=== PATIENT | female | born 1945 | race Caucasian/White ===

== ENCOUNTER → 2017-11-07 14:19 | Outpatient (CLI) | payer MEDICARE, SELFPAY ==
[2017-11-07 15:29] LABS: Absolute Lymphocyte Count 1.04 X10^3/ul (0.83-4.51); Absolute Neutrophil Count 5.1 X10^3/uL (2.0-7.7); Basophil# 0.02 X10^3/uL; Basophil% 0.3 % (0-1); Eosinophil# 0.05 X10^3/uL; Eosinophils% 0.7 % (0-5); Hematocrit 40.1 % (37-47); Hemoglobin 13.5 g/dl (12.0-15.0); Lymphocyte # 1.04 X10^3/ul (4.0); Lymphocyte % 15.2 % (19-41); Mean Corp Hgb Conc 33.7 g/gl (32-36); Mean Corpuscular Hgb 29.4 pg (27.0-32.0); Mean Corpuscular Volume 87.4 fL (81-99); Mean Platelet Vol. 9.7 fl (6.2-12.0); Monocyte# 0.58 X10^3/uL; Monocyte% 8.5 % (0-10); Neutrophil # 5.11 X10^3/uL (2.7-7.7); Platelet Count 270 K/mm3 (150-450); RBC Distribution Width CV 13.9 % (11.6-14.6); RBC Distribution Width SD 43.3 fl (35.1-43.9); Red Blood Count 4.59 M/mm3 (4.2-5.4); White Blood Count 6.8 K/mm3 (4.4-11.0)
[2017-11-07 15:33] LABS: POSITIVE COUNT NO; POSITIVE DIFFERENTIAL NO; POSITIVE MORPHOLOGY NO
[2017-11-07 16:07] LABS: ALB/GLOB Ratio 1.4 RATIO (0.9-2.4); AST(SGOT) 15 U/L (15-37); Alanine Aminotransfer ALT/SGPT 21 U/L (13-56); Albumin, Serum 4.2 g/dL (3.2-5.0); Alkaline Phosphatase 94 U/L (45-117); Anion Gap 12 (5-15); BUN 26 mg/dL (7-18); BUN/Creat Ratio 19.7 RATIO (10-20); Chloride 100 mmol/L (98-107); Creatinine, Serum 1.32 mg/dL (0.55-1.02); EST Glomerular Filtration Rate 42 mL/min (>60); Est Glom Filt Rate - Afr Amer 51 mL/min (>60); Glucose 92 mg/dL (74-106); Potassium 4.1 mmol/L (3.5-5.1); Prealbumin 32.1 mg/dL (20.0-40.0); Protein, Total 7.2 g/dL (6.4-8.2); Sodium Level 136 mmol/L (136-145); T4 Free Direct 1.67 ng/dL (0.76-1.46)
== END ==
PROVIDERS: Visit Provider Family Medicine
DX: D50.9 Iron deficiency anemia, unspecified (principal); R63.4 Abnormal weight loss; R63.0 Anorexia
CPT/HCPCS: 36415; 80053; 84134; 84439; 84443; 85025

== ENCOUNTER → 2017-11-14 10:06 | Outpatient (CLI) | payer MEDICARE, SELFPAY ==
--- NOTE | 2017-11-14 10:13 | RAD_ITS ---
STUDY: X-RAY - ABDOMEN/PELVIS REASON FOR EXAM: Female, 72 years old. Vomiting. TECHNIQUE: AP supine and upright views of the abdomen and pelvis. COMPARISON: None. FINDINGS: Normal visualized lung bases. There is an unremarkable bowel gas pattern. There is no demonstrated free abdominal air. The visualized liver, spleen and kidneys are grossly normal in size and morphology. Normal soft tissue structures. Normal visualized osseous structures. RAD/Abd Inc Decub and/or Erect IMPRESSION: No evidence of ileus or obstruction. Electronically Signed: Kendrick Jenkins MD at 16:48 EST , Service support ,
== END ==
PROVIDERS: Family Provider Family Medicine; PCP Family Medicine; Visit Provider Family Medicine
DX: R11.10 Vomiting, unspecified (principal)
CPT/HCPCS: 74019

== ENCOUNTER 2017-11-21 11:58 | Observation (INO) | payer MEDICARE, SELFPAY ==
[2017-11-21] VITALS (9 sets, daily range): BP systolic 102–188; BP diastolic 58–94; PULSE 64–92; RESP 14–21; TEMP 36.2–37.1; O2SAT 97–98; BMI 25.7; BMI 27.4
--- NOTE | 2017-11-21 12:00 | ED.RN ---
GAIT BELT TAKEN OFF PT AND GIVE TO FAMILY
--- NOTE | 2017-11-21 12:54 | RAD_ITS ---
STUDY: X-RAY CHEST REASON FOR EXAM: Female, 72 years old. Increased weakness. TECHNIQUE: Single AP portable view of the chest. COMPARISON: Comparison is made with prior study dated February 25, 2017. FINDINGS: EKG electrodes are seen. The lungs are clear and expanded. Calcified granuloma in the left lower lobe. There is no demonstrated pleural abnormality. There is borderline cardiomegaly. Normal mediastinum and hi. Normal visualized pulmonary arteries. There is atherosclerotic calcification of the aortic arch with tortuosity. There are degenerative changes of the visualized thoracic spine. Normal visualized ribs, clavicles, and shoulders. There is no demonstrated abnormality of the visualized soft tissue structures of the upper abdomen. RAD/Chest 1 View (Portable) IMPRESSION: No acute abnormality is seen. Electronically Signed: Mitchell Norton MD at 13:31 EST Tel [phone], Service support ,
--- NOTE | 2017-11-21 12:54 | EKG12_ITS ---
Test Reason : WEAKNESS Blood Pressure : / mmHG Vent. Rate : 064 BPM Atrial Rate : 394 BPM P-R Int : 000 ms QRS Dur : 100 ms QT Int : 366 ms P-R-T Axes : 000 024 118 degrees QTc Int : 377 ms Atrial fibrillation Inferior infarct , age undetermined Nonspecific ST abnormality Abnormal ECG Confirmed by LINDSAY GUADALUPE, EPI ([id number]), editorial director WANG AVELAR ([id number]) on 11/23/2017 1:34:03 PM Referred By: Shane Bangura Confirmed By:EPI MONTOYA MD
[2017-11-21] MEDS: 0.9% Normal Saline 1,000 ML 1000 ML IV (13:19)
[2017-11-21 13:28] LABS: Absolute Lymphocyte Count 1.04 X10^3/ul (0.83-4.51); Absolute Neutrophil Count 6.3 X10^3/uL (2.0-7.7); Basophil# 0.03 X10^3/uL; Basophil% 0.4 % (0-1); Eosinophil# 0.02 X10^3/uL; Eosinophils% 0.2 % (0-5); Hematocrit 40.2 % (37-47); Hemoglobin 13.7 g/dl (12.0-15.0); Lymphocyte # 1.04 X10^3/ul (4.0); Lymphocyte % 12.9 % (19-41); Mean Corp Hgb Conc 34.1 g/gl (32-36); Mean Corpuscular Hgb 29.9 pg (27.0-32.0); Mean Corpuscular Volume 87.8 fL (81-99); Mean Platelet Vol. 9.3 fl (6.2-12.0); Monocyte# 0.61 X10^3/uL; Monocyte% 7.6 % (0-10); Neutrophil # 6.32 X10^3/uL (2.7-7.7); Neutrophil % 78.4 % (47-70); Platelet Count 262 K/mm3 (150-450); RBC Distribution Width CV 13.6 % (11.6-14.6); RBC Distribution Width SD 42.5 fl (35.1-43.9); Red Blood Count 4.58 M/mm3 (4.2-5.4); White Blood Count 8.1 K/mm3 (4.4-11.0)
[2017-11-21 13:29] LABS: POSITIVE COUNT NO; POSITIVE DIFFERENTIAL NO; POSITIVE MORPHOLOGY NO
[2017-11-21 13:48] LABS: ALB/GLOB Ratio 1.3 RATIO (0.9-2.4); AST(SGOT) 24 U/L (15-37); Alanine Aminotransfer ALT/SGPT 20 U/L (13-56); Alkaline Phosphatase 99 U/L (45-117); Anion Gap 8 (5-15); BUN 27 mg/dL (7-18); BUN/Creat Ratio 20.5 RATIO (10-20); Calcium,Total 11.3 mg/dL (8.5-10.1); Chloride 101 mmol/L (98-107); Creatinine, Serum 1.32 mg/dL (0.55-1.02); EST Glomerular Filtration Rate 42 mL/min (>60); Est Glom Filt Rate - Afr Amer 51 mL/min (>60); Estimated Creatinine Clearance 30.02 ml/min; Globulin 3.1 g/dL (2.2-4.2); Glucose 100 mg/dL (74-106); Potassium 4.2 mmol/L (3.5-5.1); Protein, Total 7.1 g/dL (6.4-8.2); Sodium Level 135 mmol/L (136-145)
[2017-11-21 14:59] LABS: Mucous, Urine 0 SEEN /hpf (<or=2+); Red Blood Cells-Urine 0 SEEN /hpf (0-5); Squamous Epithelial Cells - UA 0 SEEN /hpf (5-10); White Blood Cells 0 SEEN /hpf (0-5)
[2017-11-21 15:01] LABS: Color, Urine Yellow (Yellow); Glucose, Dipstick Normal (Normal); Ketone-Dipstick 5 mg/dl (Negative); Leukocyte Esterase-Dipstick Negative /ul (Negative); Nitrite-Dipstick Negative (Negative); Occult Blood-Urine Negative /ul (Negative); Protein-Dipstick 30 mg/dl (Negative); Urine Bilirubin Dipstick Negative (Negative); Urine Clarity Clear (Clear); Urine Urobilinogen Normal (Normal)
[2017-11-21 15:09] LABS: Amorphous Sediment R; Bacteria RARE /hpf (None Seen)
--- NOTE | 2017-11-21 16:07 | ED.VISSUMM ---
- ER Visit Summary Date of Service: 11/21/17 Chief Complaint: Weakness History of Present Illness: The patient is a 72 F who presents with generalized weakness. She has a history of multiple strokes. She previously had a home health nurse physical therapy and occupational therapy. She states that she ran out of days to cover this. She currently has a home health aide 4 days a week. Caregivers note that she has been increasingly weak over the past 3-4 weeks and particularly in the past 2. She does report some intermittent nausea and vomiting every few days for the past 3-4 weeks but otherwise has no focal complaint. She denies any urinary symptoms shortness of breath cough diarrhea fever. Physical Examination: Afebrile vitals unremarkable Moist mucous membranes Heart irregular but normal rate Lungs are clear Abdomen soft Alert and oriented Patient has left upper and lower extremity weakness with effort against gravity but unable to lift more than slightly off the bed and this is at baseline Test Results: EKG shows rate controlled atrial fibrillation similar to prior. Laboratory studies notable for creatinine of 1.32 which appears to be baseline. Chest x-ray shows no acute process. Emergency Department Course and Treatment: Social work did evaluate the patient here. She will need precertification. Patient will be discussed with the hospitalist for observation. Treatment Plan: [] Disposition: Admit Impression: Generalized weakness History of stroke This note was generated with [employer] dictation software. It may contain incorrect words, spelling, and punctuation that were not noted in review of the chart prior to signing ED Disposition - Plan for ED Patient: Chief Complaint: Weakness Referrals: Shane Bangura MD [Primary Care Provider] -
--- NOTE | 2017-11-21 16:41 | CASEMGMT ---
Social Work: Referral for SNF placement. Patient presents to ED as weak and needing max assist for transfers. Patient lives with significant other who states that it is getting very difficult to care for patient in the home. Patient states that she has already spoken with Kelly at [facility] in [place] and per patient [facility] is holding a bed for patient. Spoke with Dr. Soares who states patient will be admitted for observation. Patient has [facility] and will need precert for SNF placement. Will give report to SW on unit once patient has been admitted. PLAN: Patient to be admitted for observation and precert will be started for SNF placement. FLORIN Olivera
--- NOTE | 2017-11-21 17:38 | PCM.HP.STD ---
Problem List (1) Debility Status: Acute (2) Recurrent falls Status: Chronic (3) Hypertension Status: Chronic Qualifiers: Hypertension type: essential hypertension (4) Diabetes type 2, controlled Status: Chronic Qualifiers: Diabetes mellitus complication status: without complication Diabetes mellitus correction insulin use: without correction use Qualified Code(s): E11.9 - Type 2 diabetes mellitus without complications (5) Afib Status: Chronic Qualifiers: Atrial fibrillation type: chronic Qualified Code(s): I48.2 - Chronic atrial fibrillation (6) CAD (coronary artery disease) Status: Chronic Qualifiers: Coronary Disease-Associated Artery/Lesion type: unspecified vessel or lesion type Associated angina: angina presence unspecified (7) CHF (congestive heart failure) Status: Chronic Qualifiers: Heart failure chronicity: chronic (8) Stroke (cerebrum) Status: Chronic Qualifiers: Laterality of affected vessel: left (9) Seizure Status: Chronic (10) Hyperlipidemia Status: Chronic Qualifiers: Hyperlipidemia type: unspecified Qualified Code(s): E78.5 - Hyperlipidemia, unspecified History of Present Illness Date of Admission: 11/21/17 Chief Complaint: Debility, recurrent falls The patient is a 72 year old F with past medical history of CVA with left hemiparesis, hypertension, chronic atrial fibrillation, on Eliquis, type II DM, hyperlipidemia, 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 History was taken from the patient and her daughters who were in the room. Patient is requesting for SNF placement as she is weak and needing max assist for transfers. She states she is getting too difficult to be cared for at home. She had already spoken with [facility]ry in [place] and they are holding onto a bed for her. Patient denied any headaches or dizziness or shortness of breath or chest pain or palpitations. She has nausea and vomited this morning, she says this is no new, she has been seeing her primary care doctor for some time with it and no new diagnosis has been given for now. Vitals in the ED was stable with temperature of 90 8.2F, heart rate of 81, blood pressure 141/92 respiratory rate was 14 SPO2 is 97% on room air. Blood work was essentially unremarkable for CBC, BMP showed sodium of 135, potassium 4.2 chloride 101, bicarb 26 BUN 27 creatinine 1.32, with a baseline apparently around 1.2. 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) Hyperlipidemia (Chronic) CVA (cerebral vascular accident) (Chronic) Allergies Sulfa (Sulfonamide Antibiotics) Adverse Reaction (Verified 02/25/17 08:14) Other thimerosal Adverse Reaction (Verified 02/25/17 08:14) Other Home Medications: Ambulatory Orders Medication Instructions Recorded Amlodipine [Norvasc] 5 mg PO BID 11/12/16 Apixaban [Eliquis] 5 mg PO BID 11/23/16 Clonidine HCl [Catapres] 0.1 mg PO DAILY 11/23/16 Ondansetron [Zofran Odt] 4 mg PO Q6H PRN PRN #0 tablet 11/23/16 Omeprazole [Prilosec] 20 mg PO BID 02/18/17 Atorvastatin Calcium [Lipitor] 80 mg PO QHS 02/25/17 Acetaminophen [Tylenol Tablet] 650 mg PO Q6H PRN PRN tablet 03/01/17 Levetiracetam [Keppra] 1,000 mg PO BID 11/21/17 Lisinopril [Zestril] 10 mg PO DAILY 11/21/17 Magnesium Oxide [Mag-Ox 400] 400 mg PO BIDCM 11/21/17 Metformin HCl [Glucophage] 500 mg PO BID 11/21/17 Metoprolol Tartrate [Lopressor 25 mg PO BID 11/21/17 (beta gutierrez)] Sertraline HCl [Zoloft] 50 mg PO DAILY 11/21/17 Surgical History: appendectomy, coronary bypass surgery - X 5., hysterectomy, - - ORIF right wrist fracture, ankle surgery Psychiatric History: No pertinent psych hx 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 Denies: Anorexia, Chills, Fever, Malaise, Weight Change Eyes: Denies: Blurred vision, Cataracts, Conjunctivae Inflammation, Double vision, Pain HEENT: Denies: Difficulty Hearing, Difficulty Swallowing, Head Aches, Hearing Changes, Sinus Congestion, Sinus Drainage, Sore Throat Cardiovascular: Denies: Chest Pain, Claudication, Chest Pressure, Edema, Orthopnea, Palpitations, Paroxysmal Noc. Dyspnea Respiratory: Denies: Cough, Shortness of breath at rest, Shortness of breath upon exertion, Sputum production Gastrointestinal: Denies: Abdominal Pain, Constipation, Nausea, Vomiting Genitourinary: Denies: Dysuria, Frequency, Incontinence Musculoskeletal: Denies: Joint Pain, Joint stiffness, Joint Tenderness Skin: Denies: Pruritis, Rash, Wounds Neurological: Reports: Focal weakness - left sided, not new. Denies: Difficulty swallowing, Numbness, Tingling Psychiatric: Denies: Anxiety, Depression, Homicidal Ideations, Suicidal Ideations Endocrine: Denies: Change in Body Habitus, Heat/ Cold Intolerance Hematologic/ Lymphatic: Denies: Easy Bruising, Easy Bleeding VTE Information - Inpt Only VTE Present on Admission: No VTE Pharm Prophylaxis ordered?: Yes Patient Problems: Active and Suspected Problems Debility (Acute) - Physical Exam Vital Signs Temp Pulse Resp BP Pulse Ox 97.1 F L 92 21 H 188/92 H 97 11/21/17 17:13 11/21/17 17:13 11/21/17 17:13 11/21/17 17:13 11/21/17 17:13 Assessment/Plan Active and Suspected Problems Debility (Acute) 72 year old F with past medical history of CVA with left hemiparesis, hypertension, chronic atrial fibrillation, on Eliquis, type II DM, hyperlipidemia, 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 1. Debility/recurrent falls in a patient with prior history of CVA, requesting for SNF placement Plan: Admit patient, placed on observation status, monitor on telemetry, and OT to evaluate and treat, care management to assist with placement 2. Hypertension, uncontrolled, likely secondary to missed medications, is on amlodipine, clonidine, will lisinopril, metoprolol, will continue the same will continue on home medication with hydralazine as needed and monitor on telemetry 3. History of CVA, with left-sided residual hemiparesis, on Eliquis, statin, will continue same 4. Type II DM, on metformin, would add Accu-Cheks and low dose insulin sliding scale 5. CAD status post CABG and stents, EKG shows no acute ST-T changes, patient is on statins beta gutierrez LAURIE inhibitor, will continue the same, no acute symptoms 6. Chronic Atrial fibrillation, rate controlled, metoprolol and Eliquis, will continue the same 7. Depression, on Zoloft 8. DVT Prophylaxis - patient on Eliquis Code Visit OBSV E&M: 01329 Initial observation care L3
--- NOTE | 2017-11-21 17:48 | HP.PCM_ITS ---
Problem List (1) Debility Status: Acute (2) Recurrent falls Status: Chronic (3) Hypertension Status: Chronic Qualifiers: Hypertension type: essential hypertension (4) Diabetes type 2, controlled Status: Chronic Qualifiers: Diabetes mellitus complication status: without complication Diabetes mellitus halfway insulin use: without halfway use Qualified Code(s): E11.9 - Type 2 diabetes mellitus without complications (5) Afib Status: Chronic Qualifiers: Atrial fibrillation type: chronic Qualified Code(s): I48.2 - Chronic atrial fibrillation (6) CAD (coronary artery disease) Status: Chronic Qualifiers: Coronary Disease-Associated Artery/Lesion type: unspecified vessel or lesion type Associated angina: angina presence unspecified (7) CHF (congestive heart failure) Status: Chronic Qualifiers: Heart failure chronicity: chronic (8) Stroke (cerebrum) Status: Chronic Qualifiers: Laterality of affected vessel: left (9) Seizure Status: Chronic (10) Hyperlipidemia Status: Chronic Qualifiers: Hyperlipidemia type: unspecified Qualified Code(s): E78.5 - Hyperlipidemia , unspecified History of Present Illness Date of Admission: 11/21/17 Chief Complaint: Debility, recurrent falls The patient is a 72 year old F with past medical history of CVA with left hemiparesis, hypertension, chronic atrial fibrillation, on Eliquis, type II DM, hyperlipidemia, 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 History was taken from the patient and her daughters who were in the room. Patient is requesting for SNF placement as she is weak and needing max assist for transfers. She states she is getting too difficult to be cared for at home. She had already spoken with [facility]ry in [place] and they are holding onto a bed for her. Patient denied any headaches or dizziness or shortness of breath or chest pain or palpitations. She has nausea and vomited this morning, she says this is no new, she has been seeing her primary care doctor for some time with it and no new diagnosis has been given for now. Vitals in the ED was stable with temperature of 90 8.2F, heart rate of 81, blood pressure 141/92 respiratory rate was 14 SPO2 is 97% on room air. Blood work was essentially unremarkable for CBC, BMP showed sodium of 135, potassium 4.2 chloride 101, bicarb 26 BUN 27 creatinine 1.32, with a baseline apparently around 1.2. 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) Hyperlipidemia (Chronic) CVA (cerebral vascular accident) (Chronic) Allergies Sulfa (Sulfonamide Antibiotics) Adverse Reaction (Verified 02/25/17 08:14) Other thimerosal Adverse Reaction (Verified 02/25/17 08:14) Other Home Medications: Ambulatory Orders Medication Instructions Recorded Amlodipine [Norvasc] 5 mg PO BID 11/12/16 Apixaban [Eliquis] 5 mg PO BID 11/23/16 Clonidine HCl [Catapres] 0.1 mg PO DAILY 11/23/16 Ondansetron [Zofran Odt] 4 mg PO Q6H PRN PRN #0 tablet 11/23/16 Omeprazole [Prilosec] 20 mg PO BID 02/18/17 Atorvastatin Calcium [Lipitor] 80 mg PO QHS 02/25/17 Acetaminophen [Tylenol Tablet] 650 mg PO Q6H PRN PRN tablet 03/01/17 Levetiracetam [Keppra] 1,000 mg PO BID 11/21/17 Lisinopril [Zestril] 10 mg PO DAILY 11/21/17 Magnesium Oxide [Mag-Ox 400] 400 mg PO BIDCM 11/21/17 Metformin HCl [Glucophage] 500 mg PO BID 11/21/17 Metoprolol Tartrate [Lopressor 25 mg PO BID 11/21/17 (beta gutierrez)] Sertraline HCl [Zoloft] 50 mg PO DAILY 11/21/17 Surgical History: appendectomy, coronary bypass surgery - X 5., hysterectomy, - - ORIF right wrist fracture, ankle surgery Psychiatric History: No pertinent psych hx 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 Denies: Anorexia, Chills, Fever, Malaise, Weight Change Eyes: Denies: Blurred vision, Cataracts, Conjunctivae Inflammation, Double vision, Pain HEENT: Denies: Difficulty Hearing, Difficulty Swallowing, Head Aches, Hearing Changes, Sinus Congestion, Sinus Drainage, Sore Throat Cardiovascular: Denies: Chest Pain, Claudication, Chest Pressure, Edema, Orthopnea, Palpitations, Paroxysmal Noc. Dyspnea Respiratory: Denies: Cough, Shortness of breath at rest, Shortness of breath upon exertion, Sputum production Gastrointestinal: Denies: Abdominal Pain, Constipation, Nausea, Vomiting Genitourinary: Denies: Dysuria, Frequency, Incontinence Musculoskeletal: Denies: Joint Pain, Joint stiffness, Joint Tenderness Skin: Denies: Pruritis, Rash, Wounds Neurological: Reports: Focal weakness - left sided, not new. Denies: Difficulty swallowing, Numbness, Tingling Psychiatric: Denies: Anxiety, Depression, Homicidal Ideations, Suicidal Ideations Endocrine: Denies: Change in Body Habitus, Heat/ Cold Intolerance Hematologic/ Lymphatic: Denies: Easy Bruising, Easy Bleeding VTE Information - Inpt Only VTE Present on Admission: No VTE Pharm Prophylaxis ordered?: Yes Patient Problems: Active and Suspected Problems Debility (Acute) - Physical Exam Vital Signs Temp Pulse Resp BP Pulse Ox 97.1 F L 92 21 H 188/92 H 97 11/21/17 17:13 11/21/17 17:13 11/21/17 17:13 11/21/17 17:13 11/21/17 17:13 Assessment/Plan Active and Suspected Problems Debility (Acute) 72 year old F with past medical history of CVA with left hemiparesis, hypertension, chronic atrial fibrillation, on Eliquis, type II DM, hyperlipidemia, 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 1. Debility/recurrent falls in a patient with prior history of CVA, requesting for SNF placement Plan: Admit patient, placed on observation status, monitor on telemetry, and OT to evaluate and treat, care management to assist with placement 2. Hypertension, uncontrolled, likely secondary to missed medications, is on amlodipine, clonidine, will lisinopril, metoprolol, will continue the same will continue on home medication with hydralazine as needed and monitor on telemetry 3. History of CVA, with left-sided residual hemiparesis, on Eliquis, statin, will continue same 4. Type II DM, on metformin, would add Accu-Cheks and low dose insulin sliding scale 5. CAD status post CABG and stents, EKG shows no acute ST-T changes, patient is on statins beta gutierrez LAURIE inhibitor, will continue the same, no acute symptoms 6. Chronic Atrial fibrillation, rate controlled, metoprolol and Eliquis, will continue the same 7. Depression, on Zoloft 8. DVT Prophylaxis - patient on Eliquis Code Visit OBSV E&M: 29037 Initial observation care L3
[2017-11-21] MEDS: Magnesium Oxide 400 MG Tablet PO (19:34)
[2017-11-21] MEDS: APIXABAN 5 MG TABLET PO (20:42)
[2017-11-21] MEDS: cloNIDine HCl 0.1 MG Tablet PO (20:42)
[2017-11-21] MEDS: Atorvastatin Calcium 80 MG Tablet PO (20:43)
[2017-11-21] MEDS: levETIRAcetam 1,000 MG Tablet 1000 MG PO (20:43)
[2017-11-21] MEDS: Metoprolol Tartrate 25 MG Tablet PO (20:44)
[2017-11-21] MEDS: Pantoprazole Sodium 20 MG Tablet PO (20:44)
[2017-11-21] MEDS: amLODIPine 5 MG Tablet PO (20:44)
[2017-11-21 22:01] LABS: Bedside Glucose 98 mg/dL (70-110)
[2017-11-22] VITALS (9 sets, daily range): BP systolic 116–154; BP diastolic 64–95; PULSE 52–75; RESP 16–18; TEMP 36.5–37; O2SAT 98–100
[2017-11-22 06:37] LABS: Absolute Lymphocyte Count 1.15 X10^3/ul (0.83-4.51); Absolute Neutrophil Count 4.1 X10^3/uL (2.0-7.7); Basophil# 0.02 X10^3/uL; Basophil% 0.3 % (0-1); Eosinophil# 0.05 X10^3/uL; Eosinophils% 0.9 % (0-5); Hematocrit 36.2 % (37-47); Lymphocyte # 1.15 X10^3/ul (4.0); Lymphocyte % 19.7 % (19-41); Mean Corp Hgb Conc 33.1 g/gl (32-36); Mean Corpuscular Hgb 29.1 pg (27.0-32.0); Mean Corpuscular Volume 87.9 fL (81-99); Mean Platelet Vol. 9.2 fl (6.2-12.0); Monocyte# 0.52 X10^3/uL; Monocyte% 8.9 % (0-10); Neutrophil # 4.07 X10^3/uL (2.7-7.7); Neutrophil % 69.9 % (47-70); Platelet Count 229 K/mm3 (150-450); RBC Distribution Width CV 13.7 % (11.6-14.6); RBC Distribution Width SD 43.5 fl (35.1-43.9); Red Blood Count 4.12 M/mm3 (4.2-5.4); White Blood Count 5.8 K/mm3 (4.4-11.0)
[2017-11-22 06:46] LABS: POSITIVE COUNT NO; POSITIVE DIFFERENTIAL NO; POSITIVE MORPHOLOGY NO
[2017-11-22 06:53] LABS: Anion Gap 10 (5-15); BUN 24 mg/dL (7-18); Calcium,Total 10.6 mg/dL (8.5-10.1); Chloride 102 mmol/L (98-107); Creatinine, Serum 1.09 mg/dL (0.55-1.02); EST Glomerular Filtration Rate 52 mL/min (>60); Est Glom Filt Rate - Afr Amer 63 mL/min (>60); Estimated Creatinine Clearance 36.36 ml/min; Glucose 98 mg/dL (74-106); Potassium 3.8 mmol/L (3.5-5.1); Sodium Level 135 mmol/L (136-145)
[2017-11-22] MEDS: cloNIDine HCl 0.1 MG Tablet PO ×2 (08:28→21:44)
[2017-11-22] MEDS: APIXABAN 5 MG TABLET PO ×2 (08:28→21:43)
[2017-11-22] MEDS: Sertraline 50 MG Tablet PO (08:29)
[2017-11-22] MEDS: Magnesium Oxide 400 MG Tablet PO ×2 (08:29→17:58)
[2017-11-22] MEDS: Metoprolol Tartrate 25 MG Tablet PO ×2 (08:29→21:44)
[2017-11-22] MEDS: levETIRAcetam 1,000 MG Tablet 1000 MG PO ×2 (08:29→21:44)
[2017-11-22] MEDS: Pantoprazole Sodium 20 MG Tablet PO ×2 (08:30→21:45)
[2017-11-22] MEDS: amLODIPine 5 MG Tablet PO ×2 (08:30→21:45)
[2017-11-22] MEDS: Lisinopril 10 MG Tablet PO (08:30)
--- NOTE | 2017-11-22 09:51 | CASEMGMT ---
Social Work Received referral from NA Posadas. Phone call placed to Kelly at [facility] and they do have beds available. Referral information faxed for review. Met with pt in room and discussed d/c plan. Pt confirms that she would like to go to [facility] upon d/c. SW explained initial referral has been made and SW will notify pt when [facility] makes decision if they can accept and that insurance precert will need to be obtained. SW will continue to follow for SNF placement. ELA Beltrán
--- NOTE | 2017-11-22 11:47 | CASEMGMT ---
Addendum entered by Telma Morse 11/22/17 15:07: Therapy notes faxed with request to start insurance precert. SW informed pt that [facility] can accept and will await insurance authorization. ELA Beltrán Original Note: Social Work [facility]. SW to fax therapy notes when completed and then precert will be started. SW will continue to follow for SNF placement. Plan: [facility] [place], pending insurance preauth ELA Beltrán
--- NOTE | 2017-11-22 13:22 | PCM.PN.HOSP ---
Patient Problems: Active and Suspected Problems Debility (Acute) Subjective: Still weak overall. Still with chronic left hemiparesis. Vitals/I&O's: Vital Signs Temp Pulse Resp BP Pulse Ox 36.8 C 63 18 154/95 H 98 11/22/17 07:36 11/22/17 08:29 11/22/17 07:36 11/22/17 07:36 11/22/17 07:36 Oxygen Delivery Method Room Air Weight: 68.084 kg Body Mass Index (BMI) 27.4 Intake and Output for Last 24 Hours 11/20/17 11/21/17 11/22/17 23:59 23:59 23:59 Intake Total 540 / 540 Balance 540 / 540 General: Alert, Cooperative, No apparent distress HEENT: Atraumatic, Normocephalic Lungs: Clear to auscultation, Normal air movement, No rhonchi, No wheeze Cardiovascular: Regular rate, Regular Rhythm, Normal S1, Normal S2, No murmurs Abdomen: Bowel Sounds Present, Soft, Non Tender, Non-Distended, No Hepato-splenomegaly Extremities: No edema, No Calf Tenderness Skin: No rashes, No breakdown Psych/Mental Status: Normal Affect, Appropriate Laboratory Results 11/21/17 20:41: POC Glucose 98 11/22/17 05:50: WBC 5.8, RBC 4.12 L, Hgb 12.0, Hct 36.2 L, MCV 87.9, MCH 29.1, MCHC 33.1, RDW 13.7, RDW Differential 43.5, Plt Count 229, MPV 9.2, Immature Gran % (Auto) 0.300, Neut % (Auto) 69.9, Lymph % (Auto) 19.7, [place] % (Auto) 8.9, Eos % (Auto) 0.9, Baso % (Auto) 0.3, Absolute Neuts (auto) 4.1, Absolute Lymphs (auto) 1.15, Total Counted Not Reportable 11/22/17 05:50: Sodium 135 L, Potassium 3.8, Chloride 102, Carbon Dioxide 23.0, Anion Gap 10, BUN 24 H, Creatinine 1.09 H, Estim Creat Clear Calc 36.36, Est GFR (MDRD) Af Amer 63, Est GFR (MDRD) Non-Af 52 L, BUN/Creatinine Ratio 22.0 H, Glucose 98, Calcium 10.6 H Current Medications Acetaminophen (Tylenol) 650 mg PO Q6H PRN PRN PRN Reason: Mild Pain (scale 0-3)/T>100.7 Amlodipine Besylate (Norvasc) 5 mg PO BID [facility] Last Admin: 11/22/17 08:30 Dose: 5 mg Apixaban (Eliquis) 5 mg PO BID [facility] Last Admin: 11/22/17 08:28 Dose: 5 mg Atorvastatin Calcium (Lipitor) 80 mg PO QHS [facility] Last Admin: 11/21/17 20:43 Dose: 80 mg Bisacodyl (Dulcolax) 5 mg PO DAILY PRN PRN Reason: Constipation Clonidine (Catapres) 0.1 mg PO BID [facility] Last Admin: 11/22/17 08:28 Dose: 0.1 mg Hydralazine HCl (Apresoline) 5 mg IV Q6H PRN PRN PRN Reason: BLOOD PRESSURE Levetiracetam (Keppra) 1,000 mg PO BID [facility] Last Admin: 11/22/17 08:29 Dose: 1,000 mg Lisinopril (Zestril) 10 mg PO DAILY [facility] Last Admin: 11/22/17 08:30 Dose: 10 mg Magnesium Hydroxide (Milk Of Magnesia) 30 ml PO DAILY PRN PRN Reason: Constipation Magnesium Hydroxide (Milk Of Magnesia) 30 ml PO DAILY PRN PRN PRN Reason: Constipation [facility] 400[facility] Admin: 11/22/17 08:29 Dose: 400 mg [facility] ([facility]) [facility] Last Admin: 11/22/17 08:28 Dose: 500 mg Metoprolol Tartrate (Lopressor (Beta Elias)) 25 mg PO BID [facility] Last Admin: 11/22/17 08:29 Dose: 25 mg Ondansetron HCl (Zofran Odt) 4 mg PO Q6H PRN PRN PRN Reason: NAUSEA Ondansetron HCl (Zofran) 4 mg IV Q6H PRN PRN PRN Reason: NAUSEA/VOMITING Pantoprazole Sodium (Protonix) 20 mg PO BID [facility] Last Admin: 11/22/17 08:30 Dose: 20 mg Sertraline HCl (Zoloft) 50 mg PO DAILY [facility] Last Admin: 11/22/17 08:29 Dose: 50 mg Sodium Chloride () 5 - 30 ml IV UD PRN PRN Reason: SALINE FLUSH Assessment/Plan Active and Suspected Problems Debility (Acute) 1. Debility This is been a progressive process for the patient. No acute etiology has been identified. Plan is for physical therapy to evaluate and then to proceed with precertification to try get patient into a intermediate facility. Discussed with the patient and her daughter at bedside that we will have to wait probably another day or 2 before he can get the formal okay for precertification and then patient can be discharged thereafter. 2. DVT prophylaxis: Patient is currently anticoagulated on Eliquis. Discussed with case management. Code Visit Inpatient E&M: 88690 Subs Hosp L2
--- NOTE | 2017-11-22 13:25 | PN_ITS ---
Patient Problems: Active and Suspected Problems Debility (Acute) Subjective: Still weak overall. Still with chronic left hemiparesis. Vitals/I&O's: Vital Signs Temp Pulse Resp BP Pulse Ox 36.8 C 63 18 154/95 H 98 11/22/17 07:36 11/22/17 08:29 11/22/17 07:36 11/22/17 07:36 11/22/17 07:36 Oxygen Delivery Method Room Air Weight: 68.084 kg Body Mass Index (BMI) 27.4 Intake and Output for Last 24 Hours 11/20/17 11/21/17 11/22/17 23:59 23:59 23:59 Intake Total 540 / 540 Balance 540 / 540 General: Alert, Cooperative, No apparent distress HEENT: Atraumatic, Normocephalic Lungs: Clear to auscultation, Normal air movement, No rhonchi, No wheeze Cardiovascular: Regular rate, Regular Rhythm, Normal S1, Normal S2, No murmurs Abdomen: Bowel Sounds Present, Soft, Non Tender, Non-Distended, No Hepato- splenomegaly Extremities: No edema, No Calf Tenderness Skin: No rashes, No breakdown Psych/Mental Status: Normal Affect, Appropriate Laboratory Results 11/21/17 20:41: POC Glucose 98 11/22/17 05:50: WBC 5.8, RBC 4.12 L, Hgb 12.0, Hct 36.2 L, MCV 87.9, MCH 29.1, MCHC 33.1, RDW 13.7, RDW Differential 43.5, Plt Count 229, MPV 9.2, Immature Gran % (Auto) 0.300, Neut % (Auto) 69.9, Lymph % (Auto) 19.7, [place] % (Auto) 8.9 , Eos % (Auto) 0.9, Baso % (Auto) 0.3, Absolute Neuts (auto) 4.1, Absolute Lymphs (auto) 1.15, Total Counted Not Reportable 11/22/17 05:50: Sodium 135 L, Potassium 3.8, Chloride 102, Carbon Dioxide 23.0, Anion Gap 10, BUN 24 H, Creatinine 1.09 H, Estim Creat Clear Calc 36.36, Est GFR (MDRD) Af Amer 63, Est GFR (MDRD) Non-Af 52 L, BUN/Creatinine Ratio 22.0 H, Glucose 98, Calcium 10.6 H Current Medications Acetaminophen (Tylenol) 650 mg PO Q6H PRN PRN PRN Reason: Mild Pain (scale 0-3)/T>100.7 Amlodipine Besylate (Norvasc) 5 mg PO BID [facility] Last Admin: 11/22/17 08:30 Dose: 5 mg Apixaban (Eliquis) 5 mg PO BID [facility] Last Admin: 11/22/17 08:28 Dose: 5 mg Atorvastatin Calcium (Lipitor) 80 mg PO QHS [facility] Last Admin: 11/21/17 20:43 Dose: 80 mg Bisacodyl (Dulcolax) 5 mg PO DAILY PRN PRN Reason: Constipation Clonidine (Catapres) 0.1 mg PO BID [facility] Last Admin: 11/22/17 08:28 Dose: 0.1 mg Hydralazine HCl (Apresoline) 5 mg IV Q6H PRN PRN PRN Reason: BLOOD PRESSURE Levetiracetam (Keppra) 1,000 mg PO BID [facility] Last Admin: 11/22/17 08:29 Dose: 1,000 mg Lisinopril (Zestril) 10 mg PO DAILY [facility] Last Admin: 11/22/17 08:30 Dose: 10 mg Magnesium Hydroxide (Milk Of Magnesia) 30 ml PO DAILY PRN PRN Reason: Constipation Magnesium Hydroxide (Milk Of Magnesia) 30 ml PO DAILY PRN PRN PRN Reason: Constipation [facility] Admin: 11/22/17 08:29 Dose: 400 mg [facility] ([facility] Last Admin: 11/22/17 08:28 Dose: 500 mg Metoprolol Tartrate (Lopressor (Beta Elias)) 25 mg PO BID [facility] Last Admin: 11/22/17 08:29 Dose: 25 mg Ondansetron HCl (Zofran Odt) 4 mg PO Q6H PRN PRN PRN Reason: NAUSEA Ondansetron HCl (Zofran) 4 mg IV Q6H PRN PRN PRN Reason: NAUSEA/VOMITING Pantoprazole Sodium (Protonix) 20 mg PO BID [facility] Last Admin: 11/22/17 08:30 Dose: 20 mg Sertraline HCl (Zoloft) 50 mg PO DAILY [facility] Last Admin: 11/22/17 08:29 Dose: 50 mg Sodium Chloride () 5 - 30 ml IV UD PRN PRN Reason: SALINE FLUSH Assessment/Plan Active and Suspected Problems Debility (Acute) 1. Debility * This is been a progressive process for the patient. No acute etiology has been identified. * Plan is for physical therapy to evaluate and then to proceed with precertification to try get patient into a retirement facility. * Discussed with the patient and her daughter at bedside that we will have to wait probably another day or 2 before he can get the formal okay for precertification and then patient can be discharged thereafter. 2. DVT prophylaxis: Patient is currently anticoagulated on Eliquis. Discussed with case management. Code Visit Inpatient E&M: 62156 Subs Hosp L2
--- NOTE | 2017-11-22 13:39 | CHAPLAIN ---
Type of Pastoral Visit _x__ Initial Visit ___ Follow-up Visit ___ On-call Visit ___ General Patient Visit ___ Spiritual Assessment ___ Family Conference ___ Bereavement ___ Rapid Response ___ Code Blue ___ Other (describe below) Pastoral Care Referral From _x__ Patient ___ Family ___ Nurse ___ Physician ___ Griddle Attendant ___ Education Administrative Assistant ___ Other (describe below) Sacrament/Intervention _x__ Active listening ___ Anointing ___ Mandaen ___ Bereavement ___ Communion _x__ Brigid exploration ___ _x__ Life review _x__ Prayer ___ Reconciliation ___ Sacrament of Sick _x__ Supportive presence ___ Wedding ___ Other (describe below) Pastoral Comments patient had requested visit due to past admissions and past visits together; pt gives updates and is very talkative; pt expresses thankfulness in the midst of difficult life circumstances and gives praise to God; pt has concerns for the younger generation and says she wants to pass on her brigid to others; pt has had some good family relations in recent months and is happy about that; 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
[2017-11-22] MEDS: Atorvastatin Calcium 80 MG Tablet PO (21:45)
[2017-11-23 01:34] VITALS: BP 127/72; PULSE 64; RESP 18; TEMP 36.1; O2SAT 100
[2017-11-23 07:40] VITALS: BP 136/87; PULSE 87; RESP 18; TEMP 36.7; O2SAT 100
[2017-11-23 07:47] VITALS: PULSE 87
[2017-11-23] MEDS: Pantoprazole Sodium 20 MG Tablet PO ×2 (07:47→20:14)
[2017-11-23] MEDS: Metoprolol Tartrate 25 MG Tablet PO ×2 (07:47→20:14)
[2017-11-23] MEDS: amLODIPine 5 MG Tablet PO ×2 (07:47→20:14)
[2017-11-23] MEDS: Lisinopril 10 MG Tablet PO (07:47)
[2017-11-23] MEDS: Sertraline 50 MG Tablet PO (07:47)
[2017-11-23] MEDS: cloNIDine HCl 0.1 MG Tablet PO ×2 (07:47→20:15)
[2017-11-23] MEDS: Magnesium Oxide 400 MG Tablet PO ×2 (07:47→16:44)
[2017-11-23] MEDS: levETIRAcetam 1,000 MG Tablet 1000 MG PO ×2 (07:47→20:15)
[2017-11-23] MEDS: APIXABAN 5 MG TABLET PO ×2 (07:48→20:15)
--- NOTE | 2017-11-23 10:30 | CASEMGMT ---
Addendum entered by Elyssa Torres 11/23/17 12:28: PAS/RR completed in the [employer] system, results attained. Elyssa CATHERINE, GROUP THERAPY COUNSELOR Original Note: WIL called Kelly at [facility] at 10am to check on precert, message left. Kelly returned call, she states she did not receive PT/OT(they were faxed yesterday). WIL refaxed PT/OT, she will start precert. WIL will continue to follow. FLORIN Gan, GROUP THERAPY COUNSELOR
--- NOTE | 2017-11-23 12:17 | PN_ITS ---
Patient Problems: Active and Suspected Problems Debility (Acute) Subjective: No new complaints at this time. Vitals/I&O's: Vital Signs Temp Pulse Resp BP Pulse Ox 36.7 C 87 18 136/87 H 100 11/23/17 07:40 11/23/17 07:47 11/23/17 07:40 11/23/17 07:40 11/23/17 07:40 Oxygen Delivery Method Room Air Weight: 68.084 kg Body Mass Index (BMI) 27.4 Intake and Output for Last 24 Hours 11/21/17 11/22/17 11/23/17 23:59 23:59 23:59 Intake Total 1100 / 1100 120 / 120 Balance 1100 / 1100 120 / 120 General: Alert, Cooperative, No apparent distress HEENT: Atraumatic, Normocephalic Extremities: No edema Skin: No rashes, No breakdown Current Medications Acetaminophen (Tylenol) 650 mg PO Q6H PRN PRN PRN Reason: Mild Pain (scale 0-3)/T>100.7 Amlodipine Besylate (Norvasc) 5 mg PO BID [facility] Last Admin: 11/23/17 07:47 Dose: 5 mg Apixaban (Eliquis) 5 mg PO BID [facility] Last Admin: 11/23/17 07:48 Dose: 5 mg Atorvastatin Calcium (Lipitor) 80 mg PO QHS [facility] Last Admin: 11/22/17 21:45 Dose: 80 mg Bisacodyl (Dulcolax) 5 mg PO DAILY PRN PRN Reason: Constipation Clonidine (Catapres) 0.1 mg PO BID [facility] Last Admin: 11/23/17 07:47 Dose: 0.1 mg Hydralazine HCl (Apresoline) 5 mg IV Q6H PRN PRN PRN Reason: BLOOD PRESSURE Levetiracetam (Keppra) 1,000 mg PO BID [facility] Last Admin: 11/23/17 07:47 Dose: 1,000 mg Lisinopril (Zestril) 10 mg PO DAILY [facility] Last Admin: 11/23/17 07:47 Dose: 10 mg Magnesium Hydroxide (Milk Of Magnesia) 30 ml PO DAILY PRN PRN Reason: Constipation Magnesium Hydroxide (Milk Of Magnesia) 30 ml PO DAILY PRN PRN PRN Reason: Constipation [facility] (Mag-Ox 400) [facility] Last Admin: 11/23/17 07:47 Dose: 400 mg Metformin HCl (Glucophage) [facility] Last Admin: 11/23/17 07:47 Dose: 500 mg Metoprolol Tartrate (Lopressor (Beta Elias)) 25 mg PO BID [facility] Last Admin: 11/23/17 07:47 Dose: 25 mg Ondansetron HCl (Zofran Odt) 4 mg PO Q6H PRN PRN PRN Reason: NAUSEA Ondansetron HCl (Zofran) 4 mg IV Q6H PRN PRN PRN Reason: NAUSEA/VOMITING Pantoprazole Sodium (Protonix) 20 mg PO BID [facility] Last Admin: 11/23/17 07:47 Dose: 20 mg Sertraline HCl (Zoloft) 50 mg PO DAILY [facility] Last Admin: 11/23/17 07:47 Dose: 50 mg Sodium Chloride () 5 - 30 ml IV UD PRN PRN Reason: SALINE FLUSH Assessment/Plan Active and Suspected Problems Debility (Acute) 1. Debility * This is been a progressive process for the patient. No acute etiology has been identified. * Plan is for physical therapy to evaluate and then to proceed with precertification to try get patient into a group home facility. * Discussed with the patient and her daughter at bedside that we will have to wait probably another day or 2 before he can get the formal okay for precertification and then patient can be discharged thereafter. 2. DVT prophylaxis: Patient is currently anticoagulated on Eliquis. Discussed with patient's partner bedside. Greater than 25 minutes of which greater than 50% of the time was counseling the patient and her partner about the precertification process and the time involved. And additionally discussing goals of group home facility in regards to strengthening and eventually to get the patient to point where she can be strong enough to be safe at home. Code Visit Inpatient E&M: 52090 Subs Hosp L2
[2017-11-23 13:40] VITALS: BP 116/71; PULSE 69; RESP 18; TEMP 36.5; O2SAT 99
[2017-11-23] MEDS: 0.9% NaCl Peripheral Flush Adult/Peds IV (14:41)
[2017-11-23 20:14] VITALS: BP 139/89; PULSE 68
[2017-11-23] MEDS: Atorvastatin Calcium 80 MG Tablet PO (20:14)
[2017-11-23 20:15] VITALS: BP 139/89; PULSE 68; RESP 16; TEMP 37; O2SAT 99
--- NOTE | 2017-11-23 20:15 | NURSING ---
pt very upset about the nursing staff not giving her medication at 1999. explain to pt we usually give between 2100 and 2200 but i will give it to her early at her request. pt said she has been working with a md to get her meds right and we are messing it.
[2017-11-23 20:26] LABS: Bedside Glucose 100 mg/dL (70-110)
[2017-11-24 03:16] VITALS: PULSE 50; RESP 18; O2SAT 95
[2017-11-24 03:18] VITALS: BP 141/67; PULSE 50; RESP 18; TEMP 36.6; O2SAT 95
[2017-11-24] MEDS: Magnesium Oxide 400 MG Tablet PO (08:16)
[2017-11-24 09:24] VITALS: BP 155/77; PULSE 74; RESP 16; TEMP 36.6; O2SAT 100
--- NOTE | 2017-11-24 09:26 | PN_ITS ---
Patient Problems: Active and Suspected Problems Debility (Acute) Subjective: No new events. Still waiting on insurance precertification. Vitals/I&O's: Vital Signs Temp Pulse Resp BP Pulse Ox 36.6 C 50 L 18 141/67 H 95 11/24/17 03:18 11/24/17 03:18 11/24/17 03:18 11/24/17 03:18 11/24/17 03:18 Oxygen Delivery Method Room Air Weight: 68.084 kg Body Mass Index (BMI) 27.4 Intake and Output for Last 24 Hours 11/22/17 11/23/17 11/24/17 23:59 23:59 23:59 Intake Total 1100 / 1100 1060 / 1060 120 / 120 Output Total 200 / 200 Balance 1100 / 1100 1060 / 1060 -80 / -80 General: Alert, Cooperative, No apparent distress HEENT: Atraumatic, Normocephalic Psych/Mental Status: Normal Affect, Appropriate Laboratory Results 11/23/17 20:22: POC Glucose 100 Current Medications Acetaminophen (Tylenol) 650 mg PO Q6H PRN PRN PRN Reason: Mild Pain (scale 0-3)/T>100.7 Amlodipine Besylate (Norvasc) 5 mg PO BID [facility] Last Admin: 11/23/17 20:14 Dose: 5 mg Apixaban (Eliquis) 5 mg PO BID [facility] Last Admin: 11/23/17 20:15 Dose: 5 mg Atorvastatin Calcium (Lipitor) 80 mg PO QHS [facility] Last Admin: 11/23/17 20:14 Dose: 80 mg Bisacodyl (Dulcolax) 5 mg PO DAILY PRN PRN Reason: Constipation Clonidine (Catapres) 0.1 mg PO BID [facility] Last Admin: 11/23/17 20:15 Dose: 0.1 mg Hydralazine HCl (Apresoline) 5 mg IV Q6H PRN PRN PRN Reason: BLOOD PRESSURE Levetiracetam (Keppra) 1,000 mg PO BID [facility] Last Admin: 11/23/17 20:15 Dose: 1,000 mg Lisinopril (Zestril) 10 mg PO DAILY [facility] Last Admin: 11/23/17 07:47 Dose: 10 mg Magnesium Hydroxide (Milk Of Magnesia) 30 ml PO DAILY PRN PRN Reason: Constipation Magnesium Hydroxide (Milk Of Magnesia) 30 ml PO DAILY PRN PRN PRN Reason: Constipation [facility] Admin: 11/24/17 08:16 Dose: 400 mg Metformin [facility] ([facility]uc[facility]) [facility] Last Admin: 11/24/17 08:16 Dose: 500 mg Metoprolol Tartrate (Lopressor (Beta Elias)) 25 mg PO BID [facility] Last Admin: 11/23/17 20:14 Dose: 25 mg Ondansetron HCl (Zofran Odt) 4 mg PO Q6H PRN PRN PRN Reason: NAUSEA Ondansetron HCl (Zofran) 4 mg IV Q6H PRN PRN PRN Reason: NAUSEA/VOMITING Pantoprazole Sodium (Protonix) 20 mg PO BID [facility] Last Admin: 11/23/17 20:14 Dose: 20 mg Sertraline HCl (Zoloft) 50 mg PO DAILY [facility] Last Admin: 11/23/17 07:47 Dose: 50 mg Sodium Chloride () 5 - 30 ml IV UD PRN PRN Reason: SALINE FLUSH Last Admin: 11/23/17 14:41 Dose: 10 ml Assessment/Plan Active and Suspected Problems Debility (Acute) 1. Debility * This is been a progressive process for the patient. No acute etiology has been identified. * Plan is for physical therapy to evaluate and then to proceed with precertification to try get patient into a jail facility. * Discussed with the patient and her daughter at bedside that we will have to wait probably another day or 2 before he can get the formal okay for precertification and then patient can be discharged thereafter. 2. DVT prophylaxis: Patient is currently anticoagulated on Eliquis. Code Visit Inpatient E&M: 95907 [facility] Hosp L1
[2017-11-24] MEDS: cloNIDine HCl 0.1 MG Tablet PO (09:27)
[2017-11-24] MEDS: APIXABAN 5 MG TABLET PO (09:27)
[2017-11-24 09:28] VITALS: PULSE 70
[2017-11-24] MEDS: levETIRAcetam 1,000 MG Tablet 1000 MG PO (09:28)
[2017-11-24] MEDS: Lisinopril 10 MG Tablet PO (09:28)
[2017-11-24] MEDS: Pantoprazole Sodium 20 MG Tablet PO (09:28)
[2017-11-24] MEDS: amLODIPine 5 MG Tablet PO (09:28)
[2017-11-24] MEDS: Sertraline 50 MG Tablet PO (09:28)
[2017-11-24] MEDS: Metoprolol Tartrate 25 MG Tablet PO (09:28)
--- NOTE | 2017-11-24 10:15 | CASEMGMT ---
Addendum entered by Elyssa Torres 11/24/17 10:20: Pt's significant other, Lanny, is here. SW spoke w/her, she states she called Kelly also at [facility] and Kelly said they are waiting for [employer]. Lanny states that she spoke w/Kelly and they will help pt change to [facility] from [employer] once she is there. SW let pt and Lanny know as soon as this SW hears back that pt is authorized, SW will let them know. FLORIN Gan, HOUSE DETECTIVE Original Note: Pt's daughter is here, asked to speak w/SW. SW went to pt's room, daughter has left. SW explained to pt that we are still waiting for precert to get her to [facility]. SW explained if her daughter returns SW can speak w/her, to let the RN know. SW then did call [facility] of [place], message left for Kelly in admissions. SW will continue to follow. FLORIN Gan, HOUSE DETECTIVE
--- NOTE | 2017-11-24 13:13 | NURSING ---
Nurse offers milk of magnesia; pt. refuses.
--- NOTE | 2017-11-24 13:30 | PCM.TXEXTCAR ---
- Diet 11/21/17 17:48 Diet: Cardiac/Low Cholesterol Type of Dietary Supplement:: Glucerna [place] Is pt able to select menu?: Yes - Routine Orders/Code Status Routine Lab Work: CBC Code Status: Full Code - Therapies Weight Bearing: Full weight bearing Physical Therapy: Eval and Treat Occupational Therapy: Eval and Treat - Allergies/Procedures Done in Hospital Allergies/Adverse Reactions: Allergies Sulfa (Sulfonamide Antibiotics) Adverse Reaction (Verified 02/25/17 08:14) Other thimerosal Adverse Reaction (Verified 02/25/17 08:14) Other - Type of Care/Length of Stay Estimated LOS: Convalescent Care Less Than 30 days Type of Care Needed: Skilled Rehab Potential: Fair Prognosis: Fair - Additional Orders/Day of Discharge Day of Discharge: 11/24/17 - Follow Up Care Primary Care Physician: Shane Bangura MD [Primary Care Provider] - Within 2 Weeks
[2017-11-24 13:31] VITALS: BP 125/72; PULSE 60; RESP 16; TEMP 36.8; O2SAT 99
--- NOTE | 2017-11-24 13:34 | DS.PCM_ITS ---
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 Electronically Signed: Mitchell Norton MD at 13:31 EST Tel [phone], Service support , Operations: None Summary of Care Provided: The patient is a 72 year old F has had a progressive decline. Patient just unable to be adequately cared for at home and requiring 2 people assist. Patient was brought into the hospital and evaluated by therapy. Therapy recommended half-way facility. Certification for half-way facility was obtained today. Patient will be discharged in stable condition. [ ] Discharge Diet: Low fat/ Low Cholesterol Discharge Activity: Return to Normal Activity Weight Bearing Status: Weight bearing as tolerated Home Medications: Medications to take at Discharge Amlodipine [Norvasc] 5 mg PO BID 11/12/16 Apixaban [Eliquis] 5 mg PO BID 11/23/16 Clonidine HCl [Catapres] 0.1 mg PO BID 11/23/16 Ondansetron [Zofran Odt] 4 mg PO Q6H PRN PRN #0 tablet 11/23/16 Omeprazole [Prilosec] 20 mg PO BID 02/18/17 Atorvastatin Calcium [Lipitor] 80 mg PO QHS 02/25/17 Acetaminophen [Tylenol Tablet] 650 mg PO Q6H PRN PRN tablet 03/01/17 Levetiracetam [Keppra] 1,000 mg PO BID 11/21/17 Lisinopril [Zestril] 10 mg PO DAILY 11/21/17 Magnesium Oxide [Mag-Ox 400] 400 mg PO BIDCM 11/21/17 Metformin HCl [Glucophage] 500 mg PO BID 11/21/17 Metoprolol Tartrate [Lopressor (beta gutierrez)] 25 mg PO BID 11/21/17 Sertraline HCl [Zoloft] 50 mg PO DAILY 11/21/17 Primary Care Physician: Shane Bangura MD [Primary Care Provider] - Within 2 Weeks Disposition: Snf facility Minutes spent on discharge:: 25 Patient Condition:: Good Meaningful Use Info Meaningful Use Diagnoses (Choose all that apply): None applicable Code Visit Inpatient E&M: 13570 Disch Hosp
--- NOTE | 2017-11-24 13:59 | CASEMGMT ---
Precert was attained from insurance for pt to go to [facility]. WIL notified physician, he discharged pt. WIL faxed all discharge instructions and PAS/RR with results to [facility]. SW spoke w/pt and significant other in room, let them know precert was attained. Pt does not feel she can transport via wheelchair, it would be very difficult. Pt does not express a preference for transport agency. WIL called [facility], set up a 3pm ambulance. WIL let pt, pt's significant other Joanne Ca at [facility] and RN here know time of transport. No further needs are anticipated. FLORIN Gan, PRINCIPAL MILITARY ANALYST
--- NOTE | 2017-11-24 14:16 | NURSING ---
Report called to Krista at [facility].
== END 2017-11-24 14:56 | disposition skilled nursing facility (03) ==
LOC: ED 13:00 → MS2 17:35
PROVIDERS: Admitting Provider Internal Medicine; Emergency Provider Emergency Medicine; Family Provider Family Medicine; PCP Family Medicine
DX: R53.81 Other malaise (principal); I25.10 Atherosclerotic heart disease of native coronary artery without angina pectoris; I25.2 Old myocardial infarction; E78.5 Hyperlipidemia, unspecified; I69.354 Hemiplegia and hemiparesis following cerebral infarction affecting left non-dominant side; R56.9 Unspecified convulsions; E11.9 Type 2 diabetes mellitus without complications; I11.0 Hypertensive heart disease with heart failure; I50.9 Heart failure, unspecified; I48.2 Chronic atrial fibrillation; G40.909 Epilepsy, unspecified, not intractable, without status epilepticus; Z79.01 Long term (current) use of anticoagulants; Z79.899 Other long term (current) drug therapy; Z79.84 Long term (current) use of oral hypoglycemic drugs; Z95.1 Presence of aortocoronary bypass graft; F32.9 Major depressive disorder, single episode, unspecified; K21.9 Gastro-esophageal reflux disease without esophagitis
CPT/HCPCS: 36415; 71045; 80048; 80053; 81001; 82962; 85025; 93005; 96360; 96361; 97162; 97166; 97530; 99218; 99285; J7030; P9612; A4216; G0378

== ENCOUNTER → 2017-11-28 05:48 | Outpatient (REF) | payer MEDICARE, SELFPAY ==
[2017-11-28 09:31] LABS: Hematocrit 33.6 % (37-47); Hemoglobin 11.2 g/dl (12.0-15.0); Mean Corp Hgb Conc 33.3 g/gl (32-36); Mean Corpuscular Hgb 29.3 pg (27.0-32.0); Mean Platelet Vol. 9.9 fl (6.2-12.0); Platelet Count 200 K/mm3 (150-450); RBC Distribution Width CV 13.9 % (11.6-14.6); RBC Distribution Width SD 44.4 fl (35.1-43.9); Red Blood Count 3.82 M/mm3 (4.2-5.4); White Blood Count 7.1 K/mm3 (4.4-11.0)
[2017-11-28 09:37] LABS: Scan Indicated on CBC? Y/N NO
[2017-11-28 09:55] LABS: Vitamin D,25 Hydroxy 37.5 ng/mL (19.95-100.01)
[2017-11-28 09:56] LABS: ALB/GLOB Ratio 1.6 RATIO (0.9-2.4); AST(SGOT) 12 U/L (15-37); Alanine Aminotransfer ALT/SGPT 15 U/L (13-56); Albumin, Serum 3.3 g/dL (3.2-5.0); Alkaline Phosphatase 84 U/L (45-117); Anion Gap 10 (5-15); BUN 29 mg/dL (7-18); BUN/Creat Ratio 23.4 RATIO (10-20); Calcium,Total 10.3 mg/dL (8.5-10.1); Chloride 101 mmol/L (98-107); Cholesterol 93 mg/dL (200); Creatinine, Serum 1.24 mg/dL (0.55-1.02); EST Glomerular Filtration Rate 45 mL/min (>60); Est Glom Filt Rate - Afr Amer 55 mL/min (>60); Glucose 77 mg/dL (74-106); High Density Lipoprotein 42 mg/dL; Potassium 3.9 mmol/L (3.5-5.1); Protein, Total 5.3 g/dL (6.4-8.2); Sodium Level 137 mmol/L (136-145); Thyroid Stim Hormone (TSH) 1.31 uIU/mL (0.358-3.74); Triglycerides 124 mg/dL; Very Low Density Lipoprotein 25 mg/dL (5-40)
[2017-11-28 10:04] LABS: Hemoglobin A1c 5.8 % (4.2-6.3)
== END ==
LOC: OLS.ACW100 05:48
PROVIDERS: Visit Provider Family Medicine
DX: R53.81 Other malaise (principal); E11.65 Type 2 diabetes mellitus with hyperglycemia; E78.5 Hyperlipidemia, unspecified; F32.9 Major depressive disorder, single episode, unspecified; G40.909 Epilepsy, unspecified, not intractable, without status epilepticus
CPT/HCPCS: 36415; 80053; 80061; 82306; 83036; 84443; 85027

== ENCOUNTER → 2017-12-20 17:30 | Outpatient (REF) | payer MEDICARE, SELFPAY ==
[2017-12-20 18:23] LABS: Anion Gap 9 (5-15); BUN 20 mg/dL (7-18); BUN/Creat Ratio 26.7 RATIO (10-20); Calcium,Total 9.4 mg/dL (8.5-10.1); Chloride 105 mmol/L (98-107); Creatinine, Serum 0.75 mg/dL (0.55-1.02); EST Glomerular Filtration Rate 80 mL/min (>60); Est Glom Filt Rate - Afr Amer 97 mL/min (>60); Glucose 164 mg/dL (74-106); Hematocrit 26.9 % (37-47); Hemoglobin 8.5 g/dl (12.0-15.0); Magnesium 1.8 mg/dL (1.6-2.6); Mean Corp Hgb Conc 31.6 g/gl (32-36); Mean Corpuscular Hgb 29.9 pg (27.0-32.0); Mean Corpuscular Volume 94.7 fL (81-99); Mean Platelet Vol. 10.8 fl (6.2-12.0); Platelet Count 239 K/mm3 (150-450); Potassium 3.6 mmol/L (3.5-5.1); RBC Distribution Width CV 15.5 % (11.6-14.6); RBC Distribution Width SD 50.7 fl (35.1-43.9); Red Blood Count 2.84 M/mm3 (4.2-5.4); Scan Indicated on CBC? Y/N NO; Sodium Level 139 mmol/L (136-145); White Blood Count 8.9 K/mm3 (4.4-11.0)
== END ==
LOC: OLS.ACW100 17:30
PROVIDERS: Visit Provider Family Medicine
DX: G40.909 Epilepsy, unspecified, not intractable, without status epilepticus (principal); R53.81 Other malaise; I25.10 Atherosclerotic heart disease of native coronary artery without angina pectoris; M62.81 Muscle weakness (generalized)
CPT/HCPCS: 36415; 80048; 83735; 85027

== ENCOUNTER 2017-12-21 01:07 | Inpatient (IN) | payer MEDICARE, SELFPAY ==
[2017-12-21] VITALS (21 sets, daily range): BP systolic 140–216; BP diastolic 73–190; PULSE 64–109; RESP 14–28; TEMP 36.4–36.8; O2SAT 95–98; BMI 33.8; BMI 30.1
[2017-12-21 01:21] LABS: Bedside Glucose 134 mg/dL (70-110)
--- NOTE | 2017-12-21 01:30 | EKG12_ITS ---
Test Reason : Blood Pressure : / mmHG Vent. Rate : 085 BPM Atrial Rate : 097 BPM P-R Int : 000 ms QRS Dur : 102 ms QT Int : 388 ms P-R-T Axes : 000 048 146 degrees QTc Int : 461 ms Atrial fibrillation with premature ventricular or aberrantly conducted complexes ST & T wave abnormality, consider lateral ischemia Abnormal ECG Confirmed by XENIA GUADALUPE, TYE ([id number]), film editor supervisor WANG AVELAR ([id number]) on 12/23/2017 2:08:50 PM Referred By: JON Confirmed By:TYE MICHAELS MD
--- NOTE | 2017-12-21 01:30 | RAD_ITS ---
STUDY: X-RAY CHEST REASON FOR EXAM: Female, 72 years old. Nausea and vomiting TECHNIQUE: Single AP portable view of the chest. COMPARISON: None. FINDINGS: There is ill-defined airspace disease in the right lung lower lobe suggesting atelectasis or pneumonia. There is a small right pleural effusion. There is moderate cardiac enlargement. Normal mediastinum and hi. Normal visualized pulmonary arteries. Normal visualized aortic arch and descending thoracic aorta. Normal visualized thoracic spine. There is degenerative osteoarthritis of the bilateral shoulders. There is no demonstrated abnormality of the visualized soft tissue structures of the upper abdomen. RAD/Chest 1 View (Portable) IMPRESSION: Right lower lobe pneumonia. Small right pleural effusion. Electronically Signed: Re Monte MD at 2:01 EDT Tel , Service support ,
--- NOTE | 2017-12-21 01:31 | CT_ITS ---
STUDY: CT BRAIN WITHOUT CONTRAST REASON FOR EXAM: Female, 72 years old. Altered mental status and confusion RADIATION DOSAGE (If Supplied By Facility): CTDIvol = ( 44.99 ) mGy, DLP = ( 762.36 ) mGycm TECHNIQUE: Transaxial CT imaging of the brain was performed without administration of intravenous contrast material. Individualized dose optimization techniques were used for this CT. COMPARISON: 02/25/2017 FINDINGS: Normal soft tissue structures. Normal calvarium. Normal size ventricles and extra-axial spaces for the patient's age. There are areas of decreased attenuation within the white matter tracts of the supratentorial brain, consistent with microvascular disease changes. Stable left occipital and right temporal encephalomalacia. Normal basal ganglia and thalami. Normal brainstem. Normal cerebellum. There is no intracranial hemorrhage. There are no findings of an acute ischemic infarction. Normal visualized paranasal sinuses. CT/Brain/Head without Contrast IMPRESSION: Stable left occipital and right temporal encephalomalacia. No CT evidence of acute infarct or hemorrhage. Comment: If there is clinical concern for hyperacute ischemia that is not yet apparent by CT, MRI should be considered if possible. Electronically Signed: Cruz Hernandez MD at 4:13 EDT Tel , Service support ,
--- NOTE | 2017-12-21 01:32 | ED.VISSUMM ---
- ER Visit Summary Date of Service: 12/21/17 Chief Complaint: [Altered mental status] History of Present Illness: The patient is a 72 F [who has left-sided hemiparesis. She resides in a longterm. 2 weeks ago there was some concern about an acute stroke because of change in mental status. She was taken to [facility]. They felt like she was having seizures at [facility] the MRI did not show any acute process. While there she was eating and drinking but then started coughing when she ate and failed a swallow study and PEG tube was placed. She went to [facility] a few days ago had a chest x-ray done which showed a right lower lobe pneumonia took Levaquin tonight and vomited.] Physical Examination: [] Blood pressure 156/132 heart rate 88 respiratory rate 25 pulse ox 95% on room air afebrile pale no acute distress Left facial droop Regular rate and rhythm no murmurs Slightly diminished sounds in the right base no respiratory distress but mildly tachypneic Abdomen soft and nontender normal bowel sounds 2+ pitting edema of the lower extremities Alert to self only left hemiparesis Test Results: [] Emergency Department Course and Treatment: [] Workup consistent with an aspiration pneumonia. Patient was given antibiotics here. Given her inability to tolerate p.o. poor functional status her family distress and lab abnormalities patient will be admitted for treatment in the hospital Treatment Plan: [] Disposition: Admit [] Impression: [Aspiration pneumonia] This note was generated with [employer] dictation software. It may contain incorrect words, spelling, and punctuation that were not noted in review of the chart prior to signing ED Disposition - Plan for ED Patient: Disposition: Acute Care Hospital [facility] Chief Complaint: Confusion
--- NOTE | 2017-12-21 01:35 | ED.DCSUM_ITS ---
- ER Visit Summary Date of Service: 12/21/17 Chief Complaint: [Altered mental status] History of Present Illness: The patient is a 72 F [who has left-sided hemiparesis. She resides in a alf. 2 weeks ago there was some concern about an acute stroke because of change in mental status. She was taken to [facility]. They felt like she was having seizures at [facility] the MRI did not show any acute process. While there she was eating and drinking but then started coughing when she ate and failed a swallow study and PEG tube was placed. She went to [facility] a few days ago had a chest x-ray done which showed a right lower lobe pneumonia took Levaquin tonight and vomited.] Physical Examination: [] Blood pressure 156/132 heart rate 88 respiratory rate 25 pulse ox 95% on room air afebrile pale no acute distress Left facial droop Regular rate and rhythm no murmurs Slightly diminished sounds in the right base no respiratory distress but mildly tachypneic Abdomen soft and nontender normal bowel sounds 2+ pitting edema of the lower extremities Alert to self only left hemiparesis Test Results: [] Emergency Department Course and Treatment: [] Workup consistent with an aspiration pneumonia. Patient was given antibiotics here. Given her inability to tolerate p.o. poor functional status her family distress and lab abnormalities patient will be admitted for treatment in the hospital Treatment Plan: [] Disposition: Admit [] Impression: [Aspiration pneumonia] This note was generated with [employer] dictation software. It may contain incorrect words, spelling, and punctuation that were not noted in review of the chart prior to signing ED Disposition - Plan for ED Patient: Disposition: Acute Care Hospital [facility] Chief Complaint: Confusion
[2017-12-21 01:51] LABS: Absolute Lymphocyte Count 0.72 X10^3/ul (0.83-4.51); Absolute Neutrophil Count 10.6 X10^3/uL (2.0-7.7); Basophil# 0.03 X10^3/uL; Basophil% 0.2 % (0-1); Eosinophil# 0.04 X10^3/uL; Eosinophils% 0.3 % (0-5); Hematocrit 28.4 % (37-47); Hemoglobin 9.4 g/dl (12.0-15.0); Lymphocyte # 0.72 X10^3/ul (4.0); Lymphocyte % 5.9 % (19-41); Mean Corp Hgb Conc 33.1 g/gl (32-36); Mean Corpuscular Hgb 30.8 pg (27.0-32.0); Mean Corpuscular Volume 93.1 fL (81-99); Mean Platelet Vol. 10.3 fl (6.2-12.0); Monocyte# 0.83 X10^3/uL; Monocyte% 6.8 % (0-10); Neutrophil # 10.56 X10^3/uL (2.7-7.7); Neutrophil % 86.2 % (47-70); Platelet Count 277 K/mm3 (150-450); RBC Distribution Width CV 15.5 % (11.6-14.6); RBC Distribution Width SD 49.9 fl (35.1-43.9); Red Blood Count 3.05 M/mm3 (4.2-5.4); White Blood Count 12.3 K/mm3 (4.4-11.0)
[2017-12-21 01:56] LABS: International Normalized Ratio 1.5; POSITIVE COUNT NO; POSITIVE DIFFERENTIAL NO; POSITIVE MORPHOLOGY NO
[2017-12-21 01:57] LABS: Partial Thromboplast Time 37.7 Seconds (24.1-36.2)
[2017-12-21 03:55] LABS: ALB/GLOB Ratio 0.8 RATIO (0.9-2.4); AST(SGOT) 22 U/L (15-37); Alanine Aminotransfer ALT/SGPT 56 U/L (13-56); Albumin, Serum 2.6 g/dL (3.2-5.0); Alkaline Phosphatase 114 U/L (45-117); Anion Gap 10 (5-15); BUN 20 mg/dL (7-18); BUN/Creat Ratio 25.5 RATIO (10-20); Calcium,Total 9.6 mg/dL (8.5-10.1); Chloride 104 mmol/L (98-107); Creatinine, Serum 0.78 mg/dL (0.55-1.02); EST Glomerular Filtration Rate 76 mL/min (>60); Est Glom Filt Rate - Afr Amer 92 mL/min (>60); Estimated Creatinine Clearance 41.45 ml/min; Globulin 3.4 g/dL (2.2-4.2); Glucose 130 mg/dL (74-106); Lactic Acid 1.7 mmol/L (0.4-2.0); Potassium 3.4 mmol/L (3.5-5.1); Sodium Level 139 mmol/L (136-145)
[2017-12-21 03:59] LABS: Mucous, Urine 0 SEEN /hpf (<or=2+); Red Blood Cells-Urine 0 SEEN /hpf (0-5); White Blood Cells 0 SEEN /hpf (0-5)
[2017-12-21 04:04] LABS: Color, Urine Yellow (Yellow); Glucose, Dipstick Normal (Normal); Ketone-Dipstick Negative (Negative); Leukocyte Esterase-Dipstick Negative /ul (Negative); Nitrite-Dipstick Negative (Negative); Occult Blood-Urine 10 /ul (Negative); Protein-Dipstick 100 mg/dl (Negative); Urine Bilirubin Dipstick Negative (Negative); Urine Clarity Clear (Clear); Urine Urobilinogen Normal (Normal)
[2017-12-21 04:05] LABS: Bacteria RARE /hpf (None Seen); Squamous Epithelial Cells - UA 0-5 SEEN /hpf (5-10)
[2017-12-21] MEDS: Piperacil/Tazobactam 3.375 GM/50 ML ML IV ×3 (04:46→22:29)
--- NOTE | 2017-12-21 05:05 | NURSING ---
SOME CHARTING IS IN THE DOWNTIME FORMS.
--- NOTE | 2017-12-21 06:17 | PCM.HP.STD ---
Problem List (1) Gram-negative pneumonia Status: Acute (2) Dysphagia Status: Acute (3) Gastric ulcer Status: Resolved (4) Diabetes type 2, controlled Status: Chronic Qualifiers: (5) Afib Status: Chronic Qualifiers: (6) CAD (coronary artery disease) Status: Chronic (7) CHF (congestive heart failure) Status: Chronic (8) Mental status change Status: Acute Qualifiers: (9) Seizure Status: Chronic (10) Myocardial infarct, old Status: Chronic (11) Hyperlipidemia Status: Chronic Qualifiers: (12) CVA (cerebral vascular accident) Status: Chronic History of Present Illness Date of Admission: 12/21/17 Chief Complaint: confusion. shortness of breath. The patient is a 72 year old F presents with shortness of breath and cough. Patient was discharged from [facility] on December 16 where she was hospitalized for 2 weeks for what related to me as being seizures. Patient also developed was found to have dysphasia and had a NG tube placed. Daughter and partner stated that the NG tube may have been ill placed at one point and but eventually was changed over to a PEG tube on the . [facility]. While the prison facility patient had emesis episode on the . Patient was put on Levaquin for pneumonia but given patient's just confusion as well as her shortness of breath and cough patient was brought to the hospital. Concern that the patient's family has also patient was having confusion since her hospitalization and they are concerned it may be made with the changes in her seizure medications. [] 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) Hyperlipidemia (Chronic) CVA (cerebral vascular accident) (Chronic) Allergies Sulfa (Sulfonamide Antibiotics) Adverse Reaction (Verified 12/21/17 01:10) Other Home Medications: Ambulatory Orders Medication Instructions Recorded Amlodipine [Norvasc] 5 mg GT BID 11/12/16 Apixaban [Eliquis] 5 mg GT BID 11/23/16 Clonidine HCl [Catapres] 0.1 mg GT BID 11/23/16 Atorvastatin Calcium [Lipitor] 80 mg GT QHS 02/25/17 Magnesium Oxide [Mag-Ox 400] 400 mg GT BIDCM 11/21/17 Metformin HCl [Glucophage] 500 mg GT BID 11/21/17 Metoprolol Tartrate [Lopressor 25 mg GT BID 11/21/17 (beta gutierrez)] Sertraline HCl [Zoloft] 50 mg GT DAILY 11/21/17 levETIRAcetam tablet [Keppra 1,500 mg GT BID 11/21/17 tablet] Acetaminophen [Tylenol Tablet] 650 mg GT Q6H PRN PRN 12/21/17 Ipratropium [Atrovent] 0.5 mg INHALATION Q4H PRN PRN 12/21/17 Lacosamide [Vimpat] 100 mg GT BID 12/21/17 Lactobacillus Acidophilus 1 each GT DAILY 12/21/17 [Acidophilus] Lansoprazole [Prevacid] 15 mg GT DAILY 12/21/17 Levofloxacin [Levaquin] 500 mg GT DAILY 12/21/17 Ondansetron [Zofran Odt] 4 mg GT Q6H PRN PRN 12/21/17 Surgical History: appendectomy, coronary bypass surgery - X 5., hysterectomy, - - ORIF right wrist fracture, ankle surgery Psychiatric History: No pertinent psych hx 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 Denies: Chills, Fever, Weight Change Eyes: Denies: Blurred vision, Double vision HEENT: Denies: Head Aches, Sinus Congestion, Sinus Drainage Cardiovascular: Denies: Chest Pain, Palpitations Respiratory: Reports: Cough, Shortness of Breath Gastrointestinal: Denies: Abdominal Pain, Nausea, Vomiting Genitourinary: Denies: Dysuria, Frequency Musculoskeletal: Denies: Joint Pain, Joint Tenderness Skin: Denies: Rash, Wounds Neurological: Reports: - - left sided weakness. Denies: Balance problems Psychiatric: Denies: Anxiety, Depression Hematologic/ Lymphatic: Denies: Easy Bruising, Easy Bleeding, Hx of blood clot VTE Information - Inpt Only VTE Present on Admission: No Patient Problems: Active and Suspected Problems Gram-negative pneumonia (Acute) Dysphagia (Acute) - Physical Exam General: Alert, Cooperative, No apparent distress HEENT: Atraumatic, Normocephalic Oral: Moist Mucosa, No Gingival or Mucosal Lesions/ Ulcerations Neck: No Nodes, Thyroid Normal Size and Texture Lungs: - - crackles RLL Cardiovascular: Regular rate, Regular Rhythm, Normal S1, Normal S2, No murmurs Abdomen: Bowel Sounds Present, Soft, Non Tender, Non-Distended, No Hepato-splenomegaly Extremities: No edema, No Calf Tenderness Skin: No rashes, No breakdown Musculoskeletal: No Tenderness to Palpation of Joints or Extremities, No Muscle Wasting Neurological: Muscle tone normal, - - left sided hemiparesis Psych/Mental Status: Normal Affect, Appropriate Vital Signs Temp Pulse Resp BP Pulse Ox 36.7 C 90 23 H 166/99 H 96 12/21/17 04:54 12/21/17 06:12 12/21/17 06:12 12/21/17 06:12 12/21/17 06:12 Oxygen Delivery Method Room Air Weight: 86.6 kg Body Mass Index (BMI) 33.8 Finger Stick Blood Glucose 134 Laboratory Tests Past 24 Hrs 12/21/17 12/21/17 12/21/17 01:30 01:30 01:30 WBC 12.3 H RBC 3.05 L Hgb 9.4 L Hct 28.4 L MCV 93.1 MCH 30.8 MCHC 33.1 RDW 15.5 H RDW Differential 49.9 H Plt Count 277 MPV 10.3 Immature Gran % (Auto) 0.600 Neut % (Auto) 86.2 H Lymph % (Auto) 5.9 L [place] % (Auto) 6.8 Eos % (Auto) 0.3 Baso % (Auto) 0.2 Absolute Neuts (auto) 10.6 H Absolute Lymphs (auto) 0.72 L Total Counted Not Reportable PT 18.0 H INR 1.5 APTT 37.7 H Sodium 139 Potassium 3.4 L Chloride 104 Carbon Dioxide 25.0 Anion Gap 10 BUN 20 H Creatinine 0.78 Estim Creat Clear Calc 41.45 Est GFR (MDRD) Af Amer 92 Est GFR (MDRD) Non-Af 76 BUN/Creatinine Ratio 25.5 H Glucose 130 H Lactic Acid Calcium 9.6 Total Bilirubin 0.50 AST 22 ALT 56 Alkaline Phosphatase 114 Troponin I 0.05 Total Protein 6.0 L Albumin 2.6 L Globulin 3.4 Albumin/Globulin Ratio 0.8 L Urine Color Urine Clarity Urine pH Ur Specific [place] Urine Protein Urine Glucose (UA) Urine Ketones Urine Occult Blood Urine Nitrite Urine Bilirubin Urine Urobilinogen Ur Leukocyte Esterase Urine RBC Urine WBC Ur Squamous Epith Cells Urine Bacteria Urine Mucus 12/21/17 12/21/17 01:30 02:06 WBC RBC Hgb Hct MCV MCH MCHC RDW RDW Differential Plt Count MPV Immature Gran % (Auto) Neut % (Auto) Lymph % (Auto) [place] % (Auto) Eos % (Auto) Baso % (Auto) Absolute Neuts (auto) Absolute Lymphs (auto) Total Counted PT INR APTT Sodium Potassium Chloride Carbon Dioxide Anion Gap BUN Creatinine Estim Creat Clear Calc Est GFR (MDRD) Af Amer Est GFR (MDRD) Non-Af BUN/Creatinine Ratio Glucose Lactic Acid 1.7 Calcium Total Bilirubin AST ALT Alkaline Phosphatase Troponin I Total Protein Albumin Globulin Albumin/Globulin Ratio Urine Color Yellow Urine Clarity Clear Urine pH 7.0 Ur Specific [place] 1.010 Urine Protein 100 H Urine Glucose (UA) Normal Urine Ketones Negative Urine Occult Blood 10 H Urine Nitrite Negative Urine Bilirubin Negative Urine Urobilinogen Normal Ur Leukocyte Esterase Negative Urine RBC 0 SEEN Urine WBC 0 SEEN Ur Squamous Epith Cells 0-5 SEEN Urine Bacteria RARE Urine Mucus 0 SEEN POC Glucose 12/21/17 01:13 POC Glucose 134 H X-ray reviewed and showed right lower lobe infiltrates. Assessment/Plan Active and Suspected Problems Gram-negative pneumonia (Acute) Dysphagia (Acute) 1. Suspected gram-negative pneumonia Patient was just discharged from outside hospital several days ago Continue with vancomycin and Zosyn Pulmonary toilet 2. Dysphagia Consult nutrition for further evaluation and recommendations 3. Seizure disorder Patient was started on increased Keppra at [facility] but also started on Vimpat as well Is concerned that may be causing her confusion. I will ask neurology for their input. I talked the family that the patient's confusion may be more likely multifactorial that may include the medications but also the fact the patient has pneumonia and just underwent a prolonged hospitalization. Check records from [facility] 4. Stroke Continue with Eliquis and high intensity statin 5. Diabetes mellitus type 2 Continue with metformin and add sliding scale insulin. 6. DVT prophylaxis: Patient is anticoagulated. 7. CODE STATUS: Patient is DNR Comfort Care arrest short-term intubation is okay. Code Visit Inpatient E&M: 81309 Init Hosp L3
--- NOTE | 2017-12-21 06:39 | HP.PCM_ITS ---
Problem List (1) Gram-negative pneumonia Status: Acute (2) Dysphagia Status: Acute (3) Gastric ulcer Status: Resolved (4) Diabetes type 2, controlled Status: Chronic Qualifiers: (5) Afib Status: Chronic Qualifiers: (6) CAD (coronary artery disease) Status: Chronic (7) CHF (congestive heart failure) Status: Chronic (8) Mental status change Status: Acute Qualifiers: (9) Seizure Status: Chronic (10) Myocardial infarct, old Status: Chronic (11) Hyperlipidemia Status: Chronic Qualifiers: (12) CVA (cerebral vascular accident) Status: Chronic History of Present Illness Date of Admission: 12/21/17 Chief Complaint: confusion. shortness of breath. The patient is a 72 year old F presents with shortness of breath and cough. Patient was discharged from [facility] on December 16 where she was hospitalized for 2 weeks for what related to me as being seizures. Patient also developed was found to have dysphasia and had a NG tube placed. Daughter and partner stated that the NG tube may have been ill placed at one point and but eventually was changed over to a PEG tube on the . Patient was discharged to nursing home facility over the weekend. While the nursing home facility patient had emesis episode on the . Patient was put on Levaquin for pneumonia but given patient's just confusion as well as her shortness of breath and cough patient was brought to the hospital. Concern that the patient's family has also patient was having confusion since her hospitalization and they are concerned it may be made with the changes in her seizure medications. [] 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) Hyperlipidemia (Chronic) CVA (cerebral vascular accident) (Chronic) Allergies Sulfa (Sulfonamide Antibiotics) Adverse Reaction (Verified 12/21/17 01:10) Other Home Medications: Ambulatory Orders Medication Instructions Recorded Amlodipine [Norvasc] 5 mg GT BID 11/12/16 Apixaban [Eliquis] 5 mg GT BID 11/23/16 Clonidine HCl [Catapres] 0.1 mg GT BID 11/23/16 Atorvastatin Calcium [Lipitor] 80 mg GT QHS 02/25/17 Magnesium Oxide [Mag-Ox 400] 400 mg GT BIDCM 11/21/17 Metformin HCl [Glucophage] 500 mg GT BID 11/21/17 Metoprolol Tartrate [Lopressor 25 mg GT BID 11/21/17 (beta gutierrez)] Sertraline HCl [Zoloft] 50 mg GT DAILY 11/21/17 levETIRAcetam tablet [Keppra 1,500 mg GT BID 11/21/17 tablet] Acetaminophen [Tylenol Tablet] 650 mg GT Q6H PRN PRN 12/21/17 Ipratropium [Atrovent] 0.5 mg INHALATION Q4H PRN PRN 12/21/17 Lacosamide [Vimpat] 100 mg GT BID 12/21/17 Lactobacillus Acidophilus 1 each GT DAILY 12/21/17 [Acidophilus] Lansoprazole [Prevacid] 15 mg GT DAILY 12/21/17 Levofloxacin [Levaquin] 500 mg GT DAILY 12/21/17 Ondansetron [Zofran Odt] 4 mg GT Q6H PRN PRN 12/21/17 Surgical History: appendectomy, coronary bypass surgery - X 5., hysterectomy, - - ORIF right wrist fracture, ankle surgery Psychiatric History: No 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 Denies: Chills, Fever, Weight Change Eyes: Denies: Blurred vision, Double vision HEENT: Denies: Head Aches, Sinus Congestion, Sinus Drainage Cardiovascular: Denies: Chest Pain, Palpitations Respiratory: Reports: Cough, Shortness of Breath Gastrointestinal: Denies: Abdominal Pain, Nausea, Vomiting Genitourinary: Denies: Dysuria, Frequency Musculoskeletal: Denies: Joint Pain, Joint Tenderness Skin: Denies: Rash, Wounds Neurological: Reports: - - left sided weakness. Denies: Balance problems Psychiatric: Denies: Anxiety, Depression Hematologic/ Lymphatic: Denies: Easy Bruising, Easy Bleeding, Hx of blood clot VTE Information - Inpt Only VTE Present on Admission: No Patient Problems: Active and Suspected Problems Gram-negative pneumonia (Acute) Dysphagia (Acute) - Physical Exam General: Alert, Cooperative, No apparent distress HEENT: Atraumatic, Normocephalic Oral: Moist Mucosa, No Gingival or Mucosal Lesions/ Ulcerations Neck: No Nodes, Thyroid Normal Size and Texture Lungs: - - crackles RLL Cardiovascular: Regular rate, Regular Rhythm, Normal S1, Normal S2, No murmurs Abdomen: Bowel Sounds Present, Soft, Non Tender, Non-Distended, No Hepato- splenomegaly Extremities: No edema, No Calf Tenderness Skin: No rashes, No breakdown Musculoskeletal: No Tenderness to Palpation of Joints or Extremities, No Muscle Wasting Neurological: Muscle tone normal, - - left sided hemiparesis Psych/Mental Status: Normal Affect, Appropriate Vital Signs Temp Pulse Resp BP Pulse Ox 36.7 C 90 23 H 166/99 H 96 12/21/17 04:54 12/21/17 06:12 12/21/17 06:12 12/21/17 06:12 12/21/17 06:12 Oxygen Delivery Method Room Air Weight: 86.6 kg Body Mass Index (BMI) 33.8 Finger Stick Blood Glucose 134 Laboratory Tests Past 24 Hrs 12/21/17 12/21/17 12/21/17 01:30 01:30 01:30 WBC 12.3 H RBC 3.05 L Hgb 9.4 L Hct 28.4 L MCV 93.1 MCH 30.8 MCHC 33.1 RDW 15.5 H RDW Differential 49.9 H Plt Count 277 MPV 10.3 Immature Gran % (Auto) 0.600 Neut % (Auto) 86.2 H Lymph % (Auto) 5.9 L [place] % (Auto) 6.8 Eos % (Auto) 0.3 Baso % (Auto) 0.2 Absolute Neuts (auto) 10.6 H Absolute Lymphs (auto) 0.72 L Total Counted Not Reportable PT 18.0 H INR 1.5 APTT 37.7 H Sodium 139 Potassium 3.4 L Chloride 104 Carbon Dioxide 25.0 Anion Gap 10 BUN 20 H Creatinine 0.78 Estim Creat Clear Calc 41.45 Est GFR (MDRD) Af Amer 92 Est GFR (MDRD) Non-Af 76 BUN/Creatinine Ratio 25.5 H Glucose 130 H Lactic Acid Calcium 9.6 Total Bilirubin 0.50 AST 22 ALT 56 Alkaline Phosphatase 114 Troponin I 0.05 Total Protein 6.0 L Albumin 2.6 L Globulin 3.4 Albumin/Globulin Ratio 0.8 L Urine Color Urine Clarity Urine pH Ur Specific [place] Urine Protein Urine Glucose (UA) Urine Ketones Urine Occult Blood Urine Nitrite Urine Bilirubin Urine Urobilinogen Ur Leukocyte Esterase Urine RBC Urine WBC Ur Squamous Epith Cells Urine Bacteria Urine Mucus 12/21/17 12/21/17 01:30 02:06 WBC RBC Hgb Hct MCV MCH MCHC RDW RDW Differential Plt Count MPV Immature Gran % (Auto) Neut % (Auto) Lymph % (Auto) [place] % (Auto) Eos % (Auto) Baso % (Auto) Absolute Neuts (auto) Absolute Lymphs (auto) Total Counted PT INR APTT Sodium Potassium Chloride Carbon Dioxide Anion Gap BUN Creatinine Estim Creat Clear Calc Est GFR (MDRD) Af Amer Est GFR (MDRD) Non-Af BUN/Creatinine Ratio Glucose Lactic Acid 1.7 Calcium Total Bilirubin AST ALT Alkaline Phosphatase Troponin I Total Protein Albumin Globulin Albumin/Globulin Ratio Urine Color Yellow Urine Clarity Clear Urine pH 7.0 Ur Specific [place] 1.010 Urine Protein 100 H Urine Glucose (UA) Normal Urine Ketones Negative Urine Occult Blood 10 H Urine Nitrite Negative Urine Bilirubin Negative Urine Urobilinogen Normal Ur Leukocyte Esterase Negative Urine RBC 0 SEEN Urine WBC 0 SEEN Ur Squamous Epith Cells 0-5 SEEN Urine Bacteria RARE Urine Mucus 0 SEEN POC Glucose 12/21/17 01:13 POC Glucose 134 H X-ray reviewed and showed right lower lobe infiltrates. Assessment/Plan Active and Suspected Problems Gram-negative pneumonia (Acute) Dysphagia (Acute) 1. Suspected gram-negative pneumonia * Patient was just discharged from outside hospital several days ago * Continue with vancomycin and Zosyn * Pulmonary toilet 2. Dysphagia * Consult nutrition for further evaluation and recommendations 3. Seizure disorder * Patient was started on increased Keppra at [facility] but also started on Vimpat as well * Is concerned that may be causing her confusion. I will ask neurology for their input. * I talked the family that the patient's confusion may be more likely multifactorial that may include the medications but also the fact the patient has pneumonia and just underwent a prolonged hospitalization. * Check records from [facility] 4. Stroke * Continue with Eliquis and high intensity statin 5. Diabetes mellitus type 2 * Continue with metformin and add sliding scale insulin. 6. DVT prophylaxis: Patient is anticoagulated. 7. CODE STATUS: Patient is DNR Comfort Care arrest short-term intubation is okay. Code Visit Inpatient E&M: 97451 Init Hosp L3
[2017-12-21] MEDS: Ipratropium/Albuterol Sulfate 3 ML AMPUL.NEB INHALATION (10:11)
--- NOTE | 2017-12-21 10:36 | PCM.CONS.GEN ---
Reason for Consult Date of Consultation: 12/21/17 Reason for Consultation: confusion, history of cva History of Present Illness: The patient is a 72 year old F with history of cva, admitted from [facility] due to confusion. according to notes below she was hospitalized recently at [facility] for seizures. pt unable to give history, asks me to help her off the floor although she is in bed. reports she is here because she liked a damian face, and i just want to talk to someone with an education. when asked where she is currently she reports somewhere in [place]. reports she is age 49. per h&p:The patient is a 72 year old F presents with shortness of breath and cough. Patient was discharged from [facility] on December 16 where she was hospitalized for 2 weeks for what related to me as being seizures. Patient also developed was found to have dysphasia and had a NG tube placed. Daughter and partner stated that the NG tube may have been ill placed at one point and but eventually was changed over to a PEG tube on the . Patient was discharged to longterm facility over the weekend. While the longterm facility patient had emesis episode on the . Patient was put on Levaquin for pneumonia but given patient's just confusion as well as her shortness of breath and cough patient was brought to the hospital. Concern that the patient's family has also patient was having confusion since her hospitalization and they are concerned it may be made with the changes in her seizure medications. 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) Hyperlipidemia (Chronic) CVA (cerebral vascular accident) (Chronic) Allergies Sulfa (Sulfonamide Antibiotics) Adverse Reaction (Verified 12/21/17 01:10) Other Home Medications: Ambulatory Orders Medication Instructions Recorded Amlodipine [Norvasc] 5 mg GT BID 11/12/16 Apixaban [Eliquis] 5 mg GT BID 11/23/16 Clonidine HCl [Catapres] 0.1 mg GT BID 11/23/16 Atorvastatin Calcium [Lipitor] 80 mg GT QHS 02/25/17 Magnesium Oxide [Mag-Ox 400] 400 mg GT BIDCM 11/21/17 Metformin HCl [Glucophage] 500 mg GT BID 11/21/17 Metoprolol Tartrate [Lopressor 25 mg GT BID 11/21/17 (beta elias)] Sertraline HCl [Zoloft] 50 mg GT DAILY 11/21/17 levETIRAcetam tablet [Keppra 1,500 mg GT BID 11/21/17 tablet] Acetaminophen [Tylenol Tablet] 650 mg GT Q6H PRN PRN 12/21/17 Ipratropium [Atrovent] 0.5 mg INHALATION Q4H PRN PRN 12/21/17 Lacosamide [Vimpat] 100 mg GT BID 12/21/17 Lactobacillus Acidophilus 1 each GT DAILY 12/21/17 [Acidophilus] Lansoprazole [Prevacid] 15 mg GT DAILY 12/21/17 Levofloxacin [Levaquin] 500 mg GT DAILY 12/21/17 Ondansetron [Zofran Odt] 4 mg GT Q6H PRN PRN 12/21/17 Surgical History: appendectomy, coronary bypass surgery - X 5., hysterectomy, - - ORIF right wrist fracture, ankle surgery Psychiatric History: No pertinent psych 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 Smoking Status: Never smoker - *Family History Maternal History Items: No pertinent history Paternal History Items: Heart Disease Review of Systems Unable to obtain accurate/complete ROS d/t: confusion Patient Problems: Active and Suspected Problems Gram-negative pneumonia (Acute) Dysphagia (Acute) - Physical Exam General: Alert, Confused, Disoriented - right hemianopsia no other cn deficits rue flaccid rle 2/5 Psych/Mental Status: Delusions Vital Signs Temp Pulse Resp BP Pulse Ox 36.7 C 109 H 14 167/87 H 96 12/21/17 07:14 12/21/17 09:10 12/21/17 07:14 12/21/17 07:14 12/21/17 07:14 Oxygen Delivery Method Room Air Weight: 74.6 kg Body Mass Index (BMI) 30.0 Current Home Med List Medication Instructions Recorded Confirmed Type Amlodipine [Norvasc] 5 mg GT BID 11/12/16 12/21/17 History Apixaban [Eliquis] 5 mg GT BID 11/23/16 12/21/17 History Clonidine HCl [Catapres] 0.1 mg GT BID 11/23/16 12/21/17 History Atorvastatin Calcium [Lipitor] 80 mg GT QHS 02/25/17 12/21/17 History Magnesium Oxide [Mag-Ox 400] 400 mg GT BIDCM 11/21/17 12/21/17 History Metformin HCl [Glucophage] 500 mg GT BID 11/21/17 12/21/17 History Metoprolol Tartrate [Lopressor 25 mg GT BID 11/21/17 12/21/17 History (beta elias)] Sertraline HCl [Zoloft] 50 mg GT DAILY 11/21/17 12/21/17 History levETIRAcetam tablet [Keppra 1,500 mg GT BID 11/21/17 12/21/17 History tablet] Acetaminophen [Tylenol Tablet] 650 mg GT Q6H PRN PRN 12/21/17 12/21/17 History Ipratropium [Atrovent] 0.5 mg INHALATION Q4H PRN PRN 12/21/17 12/21/17 History Lacosamide [Vimpat] 100 mg GT BID 12/21/17 12/21/17 History Lactobacillus Acidophilus 1 each GT DAILY 12/21/17 12/21/17 History [Acidophilus] Lansoprazole [Prevacid] 15 mg GT DAILY 12/21/17 12/21/17 History Levofloxacin [Levaquin] 500 mg GT DAILY 12/21/17 12/21/17 History Ondansetron [Zofran Odt] 4 mg GT Q6H PRN PRN 12/21/17 12/21/17 History Current Medications Generic Name Dose Route Start Last Admin Trade Name Freq PRN Reason Stop Dose Admin Acetaminophen 650 mg 12/21/17 08:31 Tylenol PO Q6H PRN PRN Mild Pain (scale 0-3)/T>100.7 Albuterol Sulfate 2.5 mg 12/21/17 08:31 Ventolin Aerosols INHALATION Q2H PRN PRN SHORTNESS OF BREATH Albuterol/Ipratropium 3 ml 12/21/17 10:30 Duoneb INHALATION Q6HWA.RT EMELIA Amlodipine Besylate 5 mg 12/21/17 10:00 Norvasc GT BID EMELIA Apixaban 5 mg 12/21/17 10:00 Eliquis GT BID [facility] Atorvastatin Calcium 80 mg 12/21/17 22:00 Lipitor GT QHS [facility] Clonidine 0.1 mg 12/21/17 10:00 Catapres GT BID [facility] Famotidine 20 mg 12/21/17 10:30 Pepcid GT DAILY [facility] Piperacillin Sod/Tazobactam Sod 3.375 gm in 50 mls @ 12.5 mls/hr 12/21/17 14:00 Zosyn IV Q8 [facility] Vancomycin HCl 1,250 mg/ 275 mls @ 250 mls/hr 12/21/17 08:31 Dextrose IV 12/21/17 09:36 RX TO DOSE ONE Lacosamide 100 mg 12/21/17 10:00 Vimpat Solution GT BID [facility] Lactobacillus Acidophilus 1 tablet 12/21/17 10:00 Acidophilus GT DAILY [facility] Levetiracetam 1,500 mg 12/21/17 10:00 Keppra Tablet PO BID [facility] Magnesium Hydroxide 30 ml 12/21/17 08:31 Milk Of Magnesia PO DAILY PRN Constipation Magnesium Oxide 400 mg 12/21/17 08:31 Mag-Ox 400 GT BIDCM [facility] Metformin HCl 500 mg 12/21/17 17:00 Glucophage GT BIDCM [facility] Metoprolol Tartrate 25 mg 12/21/17 10:00 Lopressor (Beta Elias) GT BID [facility] Ondansetron HCl 4 mg 12/21/17 08:31 Zofran Odt GT Q6H PRN PRN NAUSEA Ondansetron HCl 4 mg 12/21/17 08:31 Zofran IV Q8H PRN PRN NAUSEA Sertraline HCl 50 mg 12/21/17 10:00 Zoloft GT DAILY [facility] ct head reviewed, chronic right mca infarct and 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
--- NOTE | 2017-12-21 10:40 | CON.PCM_ITS ---
Reason for Consult Date of Consultation: 12/21/17 Reason for Consultation: confusion, history of cva History of Present Illness: The patient is a 72 year old F with history of cva, [facility] due to confusion. according to notes below she was hospitalized recently at [facility] for seizures. pt unable to give history, asks me to help her off the floor although she is in bed. reports she is here because she liked a damian face, and i just want to talk to someone with an education. when asked where she is currently she reports somewhere in [place]. reports she is age 49. per h&p:The patient is a 72 year old F presents with shortness of breath and cough. Patient was discharged from [facility] on December 16 where she was hospitalized for 2 weeks for what related to me as being seizures. Patient also developed was found to have dysphasia and had a NG tube placed. Daughter and partner stated that the NG tube may have been ill placed at one point and but eventually was changed over to a PEG tube on the . Patient was discharged to long term facility over the weekend. While the long term facility patient had emesis episode on the . Patient was put on Levaquin for pneumonia but given patient's just confusion as well as her shortness of breath and cough patient was brought to the hospital. Concern that the patient's family has also patient was having confusion since her hospitalization and they are concerned it may be made with the changes in her seizure medications. 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) Hyperlipidemia (Chronic) CVA (cerebral vascular accident) (Chronic) Allergies Sulfa (Sulfonamide Antibiotics) Adverse Reaction (Verified 12/21/17 01:10) Other Home Medications: Ambulatory Orders Medication Instructions Recorded Amlodipine [Norvasc] 5 mg GT BID 11/12/16 Apixaban [Eliquis] 5 mg GT BID 11/23/16 Clonidine HCl [Catapres] 0.1 mg GT BID 11/23/16 Atorvastatin Calcium [Lipitor] 80 mg GT QHS 02/25/17 Magnesium Oxide [Mag-Ox 400] 400 mg GT BIDCM 11/21/17 Metformin HCl [Glucophage] 500 mg GT BID 11/21/17 Metoprolol Tartrate [Lopressor 25 mg GT BID 11/21/17 (beta elias)] Sertraline HCl [Zoloft] 50 mg GT DAILY 11/21/17 levETIRAcetam tablet [Keppra 1,500 mg GT BID 11/21/17 tablet] Acetaminophen [Tylenol Tablet] 650 mg GT Q6H PRN PRN 12/21/17 Ipratropium [Atrovent] 0.5 mg INHALATION Q4H PRN PRN 12/21/17 Lacosamide [Vimpat] 100 mg GT BID 12/21/17 Lactobacillus Acidophilus 1 each GT DAILY 12/21/17 [Acidophilus] Lansoprazole [Prevacid] 15 mg GT DAILY 12/21/17 Levofloxacin [Levaquin] 500 mg GT DAILY 12/21/17 Ondansetron [Zofran Odt] 4 mg GT Q6H PRN PRN 12/21/17 Surgical History: appendectomy, coronary bypass surgery - X 5., hysterectomy, - - ORIF right wrist fracture, ankle surgery Psychiatric History: No pertinent psych hx BILINGUAL BRANCH MANAGER History: No pertinent BILINGUAL BRANCH MANAGER history Smoking Status: Never smoker - *Family History Maternal History Items: No pertinent history Paternal History Items: Heart Disease Review of Systems Unable to obtain accurate/complete ROS d/t: confusion Patient Problems: Active and Suspected Problems Gram-negative pneumonia (Acute) Dysphagia (Acute) - Physical Exam General: Alert, Confused, Disoriented - right hemianopsia no other cn deficits rue flaccid rle 2/5 Psych/Mental Status: Delusions Vital Signs Temp Pulse Resp BP Pulse Ox 36.7 C 109 H 14 167/87 H 96 12/21/17 07:14 12/21/17 09:10 12/21/17 07:14 12/21/17 07:14 12/21/17 07:14 Oxygen Delivery Method Room Air Weight: 74.6 kg Body Mass Index (BMI) 30.0 Current Home Med List Medication Instructions Recorded Confirmed Type Amlodipine [Norvasc] 5 mg GT BID 11/12/16 12/21/17 History Apixaban [Eliquis] 5 mg GT BID 11/23/16 12/21/17 History Clonidine HCl [Catapres] 0.1 mg GT BID 11/23/16 12/21/17 History Atorvastatin Calcium [Lipitor] 80 mg GT QHS 02/25/17 12/21/17 History Magnesium Oxide [Mag-Ox 400] 400 mg GT BIDCM 11/21/17 12/21/17 History Metformin HCl [Glucophage] 500 mg GT BID 11/21/17 12/21/17 History Metoprolol Tartrate [Lopressor 25 mg GT BID 11/21/17 12/21/17 History (beta elias)] Sertraline HCl [Zoloft] 50 mg GT DAILY 11/21/17 12/21/17 History levETIRAcetam tablet [Keppra 1,500 mg GT BID 11/21/17 12/21/17 History tablet] Acetaminophen [Tylenol Tablet] 650 mg GT Q6H PRN PRN 12/21/17 12/21/17 History Ipratropium [Atrovent] 0.5 mg INHALATION Q4H PRN PRN 12/21/17 12/21/17 History Lacosamide [Vimpat] 100 mg GT BID 12/21/17 12/21/17 History Lactobacillus Acidophilus 1 each GT DAILY 12/21/17 12/21/17 History [Acidophilus] Lansoprazole [Prevacid] 15 mg GT DAILY 12/21/17 12/21/17 History Levofloxacin [Levaquin] 500 mg GT DAILY 12/21/17 12/21/17 History Ondansetron [Zofran Odt] 4 mg GT Q6H PRN PRN 12/21/17 12/21/17 History Current Medications Generic Name Dose Route Start Last Admin Trade Name Freq PRN Reason Stop Dose Admin Acetaminophen 650 mg 12/21/17 08:31 Tylenol PO Q6H PRN PRN Mild Pain (scale 0-3)/T>100.7 Albuterol Sulfate 2.5 mg 12/21/17 08:31 Ventolin Aerosols INHALATION Q2H PRN PRN SHORTNESS OF BREATH Albuterol/Ipratropium 3 ml 12/21/17 10:30 Duoneb INHALATION Q6HWA.RT EMELIA Amlodipine Besylate 5 mg 12/21/17 10:00 Norvasc GT BID EMELIA Apixaban 5 mg 12/21/17 10:[address] [facility] Atorvastatin Calcium 80 mg 12/21/17 22:[address] [facility] Clonidine 0.1 mg 12/21/17 10:[address] [facility] Famotidine 20 mg 12/21/17 10:[address] [facility] Piperacillin Sod/Tazobactam Sod 3.375 gm in 50 mls @ 12.5 mls/hr 12/21/17 14: [address] [facility] Vancomycin HCl 1,250 mg/ 275 mls @ 250 mls/hr 12/21/17 08:31 Dextrose IV 12/21/17 09:36 RX TO DOSE ONE Lacosamide 100 mg 12/21/17 10:[address] GT B[address] [facility] Lactobacillus Acidophilus 1 tablet 12/21/17 10:[address] [facility] Levetiracetam 1,500 mg 12/21/17 10:[address] [facility] Magnesium Hydroxide 30 ml 12/21/17 08:31 Milk Of Magnesia PO DAILY PRN Constipation Magnesium Oxide 400 mg 12/21/17 08:31 Mag-Ox [address] [facility] Metformin HCl 500 mg 12/21/17 17:[address] [facility] Metoprolol Tartrate 25 mg 12/21/17 10:00 Lopressor (Beta Elias) GT BID [facility] Ondansetron HCl 4 mg 12/21/17 08:31 Zofran Odt GT Q6H PRN PRN NAUSEA Ondansetron HCl 4 mg 12/21/17 08:31 Zofran IV Q8H PRN PRN NAUSEA Sertraline HCl 50 mg 12/21/17 10:[address] 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
[2017-12-21] MEDS: Sertraline 50 MG Tablet GT (11:21)
[2017-12-21] MEDS: APIXABAN 5 MG TABLET GT ×2 (11:24→22:25)
[2017-12-21] MEDS: amLODIPine 5 MG Tablet GT ×2 (11:24→22:28)
[2017-12-21] MEDS: levETIRAcetam 1,000 MG Tablet 1500 MG PO ×2 (11:24→22:26)
[2017-12-21] MEDS: Magnesium Oxide 400 MG Tablet GT ×2 (11:24→18:37)
[2017-12-21] MEDS: cloNIDine HCl 0.1 MG Tablet GT ×2 (11:24→22:25)
[2017-12-21] MEDS: Metoprolol Tartrate 25 MG Tablet GT ×2 (11:25→22:27)
[2017-12-21] MEDS: Lacosamide Solution 100 MG/10 ML UDC GT ×2 (11:31→22:36)
[2017-12-21] MEDS: Famotidine 20 MG Tablet GT (11:31)
--- NOTE | 2017-12-21 11:36 | PCM.RX.CS ---
Consult Pharmacy has been consulted to manage selected antiobiotic: Vancomycin Type of Consult: New start Suspected Infection: Pneumonia Prior Doses of Antibiotics Received/Current Regimen: 1 Labs: Sodium 139 mmol/L (136-145) 12/21/17 01:30 Potassium 3.4 mmol/L (3.5-5.1) L 12/21/17 01:30 Chloride 104 mmol/L (98-107) 12/21/17 01:30 Carbon Dioxide 25.0 mmol/L (21.0-32.0) 12/21/17 01:30 Anion Gap 10 (5-15) 12/21/17 01:30 BUN 20 mg/dL (7-18) H 12/21/17 01:30 Creatinine 0.78 mg/dL (0.55-1.02) 12/21/17 01:30 Est GFR (MDRD) Af Amer 92 mL/min (>60) 12/21/17 01:30 Est GFR (MDRD) Non-Af 76 mL/min (>60) 12/21/17 01:30 BUN/Creatinine Ratio 25.5 RATIO (10-20) H 12/21/17 01:30 Glucose 130 mg/dL (74-106) H 12/21/17 01:30 Weight used for dosin.6 kg Estimated Creatinine Clearance: 41.4 Goal Trough: 10-15 mcg/mL Pharmacy Plan for Drug Dosing: Pharmacy Service will continue to monitor and adjust dosing as required. Follow-Up Labs: Trough Vancomycin Labs to be done on [date and time ordered]: 12/22/17 @ 2704
--- NOTE | 2017-12-21 13:32 | CASEMGMT ---
Faxed updates to [facility]. Melida MONZON ACCESS REP
--- NOTE | 2017-12-21 15:26 | PCM.HOSP.N ---
Hospitalist Note Seen and examined today, she is confused but somewhat directable. Neurology saw the patient today and felt she had encephalopathy secondary to an acute infection. I think the patient's right lower lobe pneumonia is most likely aspiration pneumonia. Patient is currently getting PEG tube feedings and is n.p.o. I feel that she does not need coverage with vancomycin at this time, I have dropped this medication off and will continue her on Zosyn. Labs will be repeated in the morning as well as a chest x-ray
[2017-12-21 16:25] LABS: M R Staph aureus DNA By PCR Negative (Negative); Probe Check PASS; Specimen Processing Control PASS
[2017-12-21] MEDS: Ondansetron 4 MG/2 ML Vial IV (18:36)
[2017-12-21] MEDS: 0.9% NaCl Peripheral Flush Adult/Peds IV (18:38)
[2017-12-21 19:06] LABS: Bedside Glucose 110 mg/dL (70-110)
[2017-12-21] MEDS: Atorvastatin Calcium 80 MG Tablet GT (22:27)
[2017-12-21 23:46] LABS: Bedside Glucose 94 mg/dL (70-110)
[2017-12-22] VITALS (14 sets, daily range): BP systolic 138–153; BP diastolic 69–86; PULSE 63–108; RESP 16–18; TEMP 36.7–36.9; O2SAT 95–99
[2017-12-22 05:49] LABS: Hematocrit 25.4 % (37-47); Mean Corp Hgb Conc 31.5 g/gl (32-36); Mean Corpuscular Hgb 30.1 pg (27.0-32.0); Mean Corpuscular Volume 95.5 fL (81-99); Mean Platelet Vol. 10.2 fl (6.2-12.0); Platelet Count 235 K/mm3 (150-450); RBC Distribution Width CV 15.7 % (11.6-14.6); RBC Distribution Width SD 51.6 fl (35.1-43.9); Red Blood Count 2.66 M/mm3 (4.2-5.4); White Blood Count 6.7 K/mm3 (4.4-11.0)
[2017-12-22 05:50] LABS: Scan Indicated on CBC? Y/N NO
--- NOTE | 2017-12-22 05:55 | RAD_ITS ---
STUDY: X-RAY CHEST REASON FOR EXAM: Female, 72 years old. SOB TECHNIQUE: Single frontal view of the chest. COMPARISON: 12/21/2017 FINDINGS: Stable right basilar alveolar disease and right pleural effusion. Stable cardiac silhouette. Normal mediastinum and hi. Normal visualized pulmonary arteries. Normal visualized aortic arch and descending thoracic aorta. Normal visualized thoracic spine. Normal visualized ribs, clavicles, and shoulders. There is no demonstrated abnormality of the visualized soft tissue structures of the upper abdomen. RAD/Chest 1 View (Portable) IMPRESSION: Stable right basilar alveolar disease and right pleural effusion. Electronically Signed: Cruz Hernandez MD at 5:25 EDT Tel , Service support ,
[2017-12-22] MEDS: Piperacil/Tazobactam 3.375 GM/50 ML ML IV ×3 (06:02→22:34)
[2017-12-22 06:13] LABS: Anion Gap 9 (5-15); BUN 15 mg/dL (7-18); BUN/Creat Ratio 17.5 RATIO (10-20); Calcium,Total 9.5 mg/dL (8.5-10.1); Chloride 105 mmol/L (98-107); Creatinine, Serum 0.86 mg/dL (0.55-1.02); EST Glomerular Filtration Rate 69 mL/min (>60); Est Glom Filt Rate - Afr Amer 83 mL/min (>60); Estimated Creatinine Clearance 46.08 ml/min; Glucose 91 mg/dL (74-106); Potassium 3.4 mmol/L (3.5-5.1); Sodium Level 140 mmol/L (136-145)
[2017-12-22 07:06] LABS: Bedside Glucose 107 mg/dL (70-110)
--- NOTE | 2017-12-22 07:30 | NURSING ---
pt blood glucose 107
[2017-12-22] MEDS: Ipratropium/Albuterol Sulfate 3 ML AMPUL.NEB INHALATION ×2 (07:35→21:32)
[2017-12-22] MEDS: levETIRAcetam 1,000 MG Tablet 1500 MG PO ×2 (09:01→22:35)
[2017-12-22] MEDS: APIXABAN 5 MG TABLET GT ×2 (09:01→22:35)
[2017-12-22] MEDS: cloNIDine HCl 0.1 MG Tablet GT ×2 (09:01→22:35)
[2017-12-22] MEDS: Magnesium Oxide 400 MG Tablet GT ×2 (09:01→16:28)
[2017-12-22] MEDS: Metoprolol Tartrate 25 MG Tablet GT ×2 (09:02→22:36)
[2017-12-22] MEDS: amLODIPine 5 MG Tablet GT ×2 (09:02→22:36)
[2017-12-22] MEDS: Famotidine 20 MG Tablet GT (09:02)
[2017-12-22] MEDS: Sertraline 50 MG Tablet GT (09:03)
[2017-12-22] MEDS: Lacosamide Solution 100 MG/10 ML UDC GT ×2 (10:25→22:48)
[2017-12-22] MEDS: Acetaminophen 325 MG Tablet 650 MG PO (10:26)
[2017-12-22] MEDS: Jevity 1.5 1,000 ML 20 ML GT (13:50)
--- NOTE | 2017-12-22 14:12 | CASEMGMT ---
WIL called Kelly at [facility]. WIL asked if patient needed prior auth before she can return. She said she does need this before she can return. WIL told her patient is ready today. She said she would let SW know as soon as she hears from insurance. Plan: return to [facility] pending insurance approval. Melida YUN
--- NOTE | 2017-12-22 17:47 | PCM.PROGNOTE ---
Subjective: Seen and examined today, I talked with her significant other who is in the room today, patient is more alert today and appropriate. We will still have to await approval for [facility], I have started tube feedings back today. Patient remains afebrile and stable at this time - Physical Exam General: Alert, Oriented x3, Cooperative, No apparent distress, Well developed HEENT: Atraumatic, PERRLA, EOMI, Normocephalic Oral: Moist Mucosa Neck: Supple, No JVD, Negative Carotid Bruits, No Nuchal Rigidity, Trachea Midline, Thyroid Normal Size and Texture Lungs: Clear to auscultation, Normal air movement, No rhonchi, No wheeze, No rales Cardiovascular: Regular rate, Regular Rhythm, Normal S1, Normal S2, No murmurs, No Ectopic Activity, PMI Normal, No rub noted, No Gallop Abdomen: Bowel Sounds Present, Soft, Non Tender, Non-Distended, No hernias noted Extremities: Capillary Refill Less than 3 Seconds Skin: No breakdown Neurological: Cranial nerves II-XII grossly intact, - - Hemiparesis- left Psych/Mental Status: Normal Affect, Appropriate, Alert and oriented to time, place, person, mood and affect Vital Signs Temp Pulse Resp BP Pulse Ox 98.1 F 92 16 145/69 H 99 12/22/17 16:00 12/22/17 16:00 12/22/17 16:00 12/22/17 16:00 12/22/17 16:00 Oxygen Delivery Method Room Air Weight: 74.6 kg Body Mass Index (BMI) 30.0 Intake and Output for Last 24 Hours 12/20/17 12/21/17 12/22/17 23:59 23:59 23:59 Intake Total 773 / 773 557.6 / 557.6 Output Total 1325 / 1325 900 / 900 Balance -552 / -552 -342.4 / -342.4 Microbiology Past 72 Hours 12/21/17 14:55 Streptococcus pneumoniae Antigen (M - Final Urine Catheter - Urena 12/21/17 14:55 Legionella Antigen - Final Urine Catheter - Catheter Laboratory Tests Past 24 Hrs 12/22/17 12/22/17 05:35 05:35 WBC 6.7 RBC 2.66 L Hgb 8.0 L Hct 25.4 L MCV 95.5 MCH 30.1 MCHC 31.5 L RDW 15.7 H RDW Differential 51.6 H Plt Count 235 MPV 10.2 Sodium 140 Potassium 3.4 L Chloride 105 Carbon Dioxide 26.0 Anion Gap 9 BUN 15 Creatinine 0.86 Estim Creat Clear Calc 46.08 Est GFR (MDRD) Af Amer 83 Est GFR (MDRD) Non-Af 69 BUN/Creatinine Ratio 17.5 Glucose 91 Calcium 9.5 POC Glucose 12/22/17 12/21/17 12/21/17 06:59 22:22 18:43 POC Glucose 107 94 110 Medical Necessity - Tobacco Use Smoking Status: Never smoker Assessment/Plan #1 right lower lobe aspiration pneumonia secondary to dysphagia from cerebrovascular accident (chronic) #2 cerebrovascular disease #3 left hemiparesis #4 seizure disorder #5 acute metabolic encephalopathy secondary to right lower lobe aspiration pneumonia #6 hypokalemia Code Visit Inpatient E&M: 78271 Subs Hosp L2
[2017-12-22] MEDS: 0.9% NaCl Peripheral Flush Adult/Peds IV (22:35)
[2017-12-22] MEDS: Atorvastatin Calcium 80 MG Tablet GT (22:36)
[2017-12-23] VITALS (10 sets, daily range): BP systolic 112–154; BP diastolic 58–85; PULSE 67–100; RESP 16–18; TEMP 36.7–37.1; O2SAT 91–99
[2017-12-23] MEDS: Piperacil/Tazobactam 3.375 GM/50 ML ML IV (05:56)
[2017-12-23] MEDS: Ipratropium/Albuterol Sulfate 3 ML AMPUL.NEB INHALATION ×2 (06:56→13:15)
[2017-12-23] MEDS: Magnesium Oxide 400 MG Tablet GT (09:29)
[2017-12-23] MEDS: amLODIPine 5 MG Tablet GT (09:29)
[2017-12-23] MEDS: Sertraline 50 MG Tablet GT (09:29)
[2017-12-23] MEDS: Metoprolol Tartrate 25 MG Tablet GT (09:29)
[2017-12-23] MEDS: Famotidine 20 MG Tablet GT (09:29)
[2017-12-23] MEDS: cloNIDine HCl 0.1 MG Tablet GT (09:29)
[2017-12-23] MEDS: APIXABAN 5 MG TABLET GT (09:29)
[2017-12-23] MEDS: levETIRAcetam 1,000 MG Tablet 1500 MG PO (09:30)
[2017-12-23] MEDS: Lacosamide Solution 100 MG/10 ML UDC GT (09:38)
--- NOTE | 2017-12-23 12:38 | CASEMGMT ---
Addendum entered by Melida Matute 12/23/17 13:55: WIL spoke with physician and [facility]. After much discussion it was decided patient will return on the tube feed she came to [facility] on. Their physician can change it if he/she feels it is necessary. Melida YUN Original Note: Addendum entered by Melida Matute 12/23/17 13:05: WIL spoke with Kelly at [facility] and she said they do not have Jevity 1.5. She said they were giving her a different tube feed. She asked if [facility] could send Jevity with patient until they can get it. WIL told her SW will have to find out. SW called [facility] Nutrition and they changed it as she was on a specialty renal feed and there is no evidence of patient having renal problems. WIL then called [facility] pharmacist and left him a voice mail inquiring if we are able to send patient with Jevity. WIL will also ask physician. Melida YUN Original Note: Received approval for patient to go back to [facility] today. WIL notified physician, RN, patient and her significant other. Await orders. Melida YUN
--- NOTE | 2017-12-23 15:09 | PCM.TXEXTCAR ---
- Diet 12/21/17 06:13 Diet: Nothing Per Oral Tube Feed: see below - Routine Orders/Code Status Code Status: DNC-A - Wound(s) coccyx Wound Type: pressure injury/shearing Dressing Change: applied Mepilex dressing - Therapies Weight Bearing: resume previous activity level Physical Therapy: Eval and Treat Occupational Therapy: Eval and Treat Speech Therapy: Eval and Treat - Problem/Diagnosis (1) Aspiration pneumonia Status: Acute Current Visit: Yes (2) Debility Status: Chronic Current Visit: No (3) Hypertension Status: Chronic Current Visit: No (4) Hyperlipidemia Status: Chronic Current Visit: No (5) CVA (cerebral vascular accident) Status: Chronic Current Visit: No - Allergies/Procedures Done in Hospital Allergies/Adverse Reactions: Allergies Sulfa (Sulfonamide Antibiotics) Adverse Reaction (Verified 12/21/17 01:10) Other Procedures: None - Type of Care/Length of Stay Estimated LOS: Convalescent Care Less Than 30 days Type of Care Needed: Skilled Rehab Potential: Good Prognosis: Good - Additional Orders/Day of Discharge Additional Orders: chest x-ray in one week H&P will serve as current which was dated: 12/21/17 Day of Discharge: 12/23/17 - Dietary and Speech Recommendations Dietitian Recommendations/Changes: Novasource renal 2.0 at 35ml/hr with 200 ml water flush every 6 hours - Follow Up Care Primary Care Physician: Shane Bangura MD [Primary Care Provider] -
[2017-12-23] MEDS: Acetaminophen 325 MG Tablet 650 MG PO (15:15)
--- NOTE | 2017-12-23 15:44 | CASEMGMT ---
Orders fax[facility] to [facility] at 5p via cot. SW notified RN who notified patient and her significant other. SW also called [facility] and let Johnny know this information. All in agreement with d/c plan. d/c back to [facility] under skilled level of care[facility] Melida MONZON MSW
--- NOTE | 2017-12-23 16:11 | NURSING ---
report called to alexis enriquez
--- NOTE | 2017-12-25 11:33 | PCM.DC.SUM ---
Discharge Date and Diagnosis Date of Admission: 12/21/17 Date of Discharge: 12/23/17 - Primary Discharge Diagnosis #1 right lower lobe aspiration pneumonia secondary to dysphagia from cerebrovascular disease #2 cerebrovascular disease #3 metabolic encephalopathy secondary to right lower lobe aspiration pneumonia #4 seizure disorder #5 left hemiparesis #6 hypokalemia #7 anemia of chronic disease - Secondary Discharge Diagnosis Chronic Problems Debility (Chronic) Recurrent falls (Chronic) Hypertension (Chronic) Diabetes type 2, controlled (Chronic) Afib (Chronic) CAD (coronary artery disease) (Chronic) CHF (congestive heart failure) (Chronic) Stroke (cerebrum) (Chronic) Seizure (Chronic) Headache (Chronic) Myocardial infarct, old (Chronic) Hyperlipidemia (Chronic) CVA (cerebral vascular accident) (Chronic) Hospital Course and Treatment Consultations 12/21/17 08:31 Consult: Onc/Wound/physical damage appraiser Routine Comment: Operations: None Procedures: None Summary of Care Provided: The patient is a 72 year old F was seen in the emergency room at [facility] after being transferred from an extended care facility due to mental status change, patient had been hospitalized approximately 2 weeks prior and another hospital and felt to have a seizure disorder but no acute stroke, PEG tube had to be placed during that admission due to dysphagia. Evaluation in the emergency room included a chest x-ray which showed a right lower lobe infiltrate, pulse ox was 95% on room air, patient in no respiratory distress, potassium was slightly low at 3.4, hemoglobin was 9.4 and white blood cell count was 12.3. Patient was admitted for right lower lobe pneumonia, initially the hospitalist that admitted the patient felt it was a hospital-acquired pneumonia but I felt it was more likely an aspiration pneumonia. PT and OT saw the patient, it was felt that she would benefit from skilled care and on 12/23/17, she was seen and examined felt in stable condition for transfer back to the long-term facility at which she resided. There were no complications during her hospital admission Home Medications: Medications to take at Discharge Amlodipine [Norvasc] 5 mg GT BID 11/12/16 Apixaban [Eliquis] 5 mg GT BID 11/23/16 Clonidine HCl [Catapres] 0.1 mg GT BID 11/23/16 Atorvastatin Calcium [Lipitor] 80 mg GT QHS 02/25/17 Magnesium Oxide [Mag-Ox 400] 400 mg GT BIDCM 11/21/17 Metformin HCl [Glucophage] 500 mg GT BID 11/21/17 Metoprolol Tartrate [Lopressor (beta gutierrez)] 25 mg GT BID 11/21/17 Sertraline HCl [Zoloft] 50 mg GT DAILY 11/21/17 levETIRAcetam tablet [Keppra tablet] 1,500 mg GT BID 11/21/17 Acetaminophen [Tylenol Tablet] 650 mg GT Q6H PRN PRN 12/21/17 Ipratropium [Atrovent Aerosols] 0.5 mg INHALATION Q4H PRN PRN 12/21/17 Lacosamide [Vimpat] 100 mg GT BID 12/21/17 Lactobacillus Acidophilus [Acidophilus] 1 each GT DAILY 12/21/17 Lansoprazole [Prevacid] 15 mg GT DAILY 12/21/17 Ondansetron [Zofran Odt] 4 mg GT Q6H PRN PRN 12/21/17 Albuterol Aerosols [Ventolin Aerosols] 2.5 mg INHALATION Q2H PRN PRN vial.neb. 12/23/17 Amoxicillin/Potassium Clav [Augmentin 250 Suspension] 10 ml PO Q8H #1 ml 12/23/17 Following Prescrptions Were Given to Patient: Amoxicillin/Potassium Clav [Augmentin 250 Suspension] 10 ml PO Q8H #1 ml Primary Care Physician: Shane Bangura MD [Primary Care Provider] - Disposition: Intermediate facility Minutes spent on discharge:: 34 Patient Condition:: Stable Medical Necessity - Tobacco Use Smoking Status: Never smoker Meaningful Use Info Meaningful Use Diagnoses (Choose all that apply): None applicable Code Visit Inpatient E&M: 69458 Disch Hosp
--- NOTE | 2017-12-25 11:38 | DS.PCM_ITS ---
Discharge Date and Diagnosis Date of Admission: 12/21/17 Date of Discharge: 12/23/17 - Primary Discharge Diagnosis #1 right lower lobe aspiration pneumonia secondary to dysphagia from cerebrovascular disease #2 cerebrovascular disease #3 metabolic encephalopathy secondary to right lower lobe aspiration pneumonia #4 seizure disorder #5 left hemiparesis #6 hypokalemia #7 anemia of chronic disease - Secondary Discharge Diagnosis Chronic Problems Debility (Chronic) Recurrent falls (Chronic) Hypertension (Chronic) Diabetes type 2, controlled (Chronic) Afib (Chronic) CAD (coronary artery disease) (Chronic) CHF (congestive heart failure) (Chronic) Stroke (cerebrum) (Chronic) Seizure (Chronic) Headache (Chronic) Myocardial infarct, old (Chronic) Hyperlipidemia (Chronic) CVA (cerebral vascular accident) (Chronic) Hospital Course and Treatment Consultations 12/21/17 08:31 Consult: Onc/Wound/property and casualty insurance agent Routine Comment: Operations: None Procedures: None Summary of Care Provided: The patient is a 72 year old F was seen in the emergency room at [facility] after being transferred from an extended care facility due to mental status change, patient had been hospitalized approximately 2 weeks prior and another hospital and felt to have a seizure disorder but no acute stroke, PEG tube had to be placed during that admission due to dysphagia. Evaluation in the emergency room included a chest x-ray which showed a right lower lobe infiltrate, pulse ox was 95% on room air, patient in no respiratory distress, potassium was slightly low at 3.4, hemoglobin was 9.4 and white blood cell count was 12.3. Patient was admitted for right lower lobe pneumonia, initially the hospitalist that admitted the patient felt it was a hospital- acquired pneumonia but I felt it was more likely an aspiration pneumonia. PT and OT saw the patient, it was felt that she would benefit from skilled care and on 12/23/17, she was seen and examined felt in stable condition for transfer back to the [facility] at which she resided. There were no complications during her hospital admission Home Medications: Medications to take at Discharge Amlodipine [Norvasc] 5 mg GT BID 11/12/16 Apixaban [Eliquis] 5 mg GT BID 11/23/16 Clonidine HCl [Catapres] 0.1 mg GT BID 11/23/16 Atorvastatin Calcium [Lipitor] 80 mg GT QHS 02/25/17 Magnesium Oxide [Mag-Ox 400] 400 mg GT BIDCM 11/21/17 Metformin HCl [Glucophage] 500 mg GT BID 11/21/17 Metoprolol Tartrate [Lopressor (beta gutierrez)] 25 mg GT BID 11/21/17 Sertraline HCl [Zoloft] 50 mg GT DAILY 11/21/17 levETIRAcetam tablet [Keppra tablet] 1,500 mg GT BID 11/21/17 Acetaminophen [Tylenol Tablet] 650 mg GT Q6H PRN PRN 12/21/17 Ipratropium [Atrovent Aerosols] 0.5 mg INHALATION Q4H PRN PRN 12/21/17 Lacosamide [Vimpat] 100 mg GT BID 12/21/17 Lactobacillus Acidophilus [Acidophilus] 1 each GT DAILY 12/21/17 Lansoprazole [Prevacid] 15 mg GT DAILY 12/21/17 Ondansetron [Zofran Odt] 4 mg GT Q6H PRN PRN 12/21/17 Albuterol Aerosols [Ventolin Aerosols] 2.5 mg INHALATION Q2H PRN PRN vial.neb. 12/23/17 Amoxicillin/Potassium Clav [Augmentin 250 Suspension] 10 ml PO Q8H #1 ml Following Prescrptions Were Given to Patient: Amoxicillin/Potassium Clav [Augmentin 250 Suspension] 10 ml PO Q8H #1 ml Primary Care Physician: Shane Bangura MD [Primary Care Provider] - Disposition: Half-Way facility Minutes spent on discharge:: 34 Patient Condition:: Stable Medical Necessity - Tobacco Use Smoking Status: Never smoker Meaningful Use Info Meaningful Use Diagnoses (Choose all that apply): None applicable Code Visit Inpatient E&M: 08430 Disch Hosp
== END 2017-12-23 17:29 | disposition skilled nursing facility (03) | DRG 177 ==
LOC: ED 01:40 → PCU 06:26
PROVIDERS: Emergency Provider Emergency Medicine; Family Provider Family Medicine; PCP Family Medicine; Visit Provider Internal Medicine
DX: J69.0 Pneumonitis due to inhalation of food and vomit (principal); G93.41 Metabolic encephalopathy; I48.91 Unspecified atrial fibrillation; G81.94 Hemiplegia, unspecified affecting left nondominant side; R13.10 Dysphagia, unspecified; G40.909 Epilepsy, unspecified, not intractable, without status epilepticus; I50.9 Heart failure, unspecified; D63.8 Anemia in other chronic diseases classified elsewhere; I11.0 Hypertensive heart disease with heart failure; Z93.1 Gastrostomy status; E11.9 Type 2 diabetes mellitus without complications; E87.6 Hypokalemia; I25.10 Atherosclerotic heart disease of native coronary artery without angina pectoris; Z66 Do not resuscitate; Z79.84 Long term (current) use of oral hypoglycemic drugs; E78.5 Hyperlipidemia, unspecified; I25.2 Old myocardial infarction; I69.391 Dysphagia following cerebral infarction; R29.6 Repeated falls
CPT/HCPCS: 36415; 70450; 71045; 80048; 80053; 81001; 82962; 83605; 84484; 85025; 85027; 85610; 85730; 87040; 87086; 87449; 87641; 92526; 93005; 94640; 94667; 94668; 97162; 97166; 97530; 97802; 97803; 99285; J7050; A4216; J2405

== ENCOUNTER → 2017-12-27 05:00 | Outpatient (REF) | payer MEDICARE, SELFPAY ==
[2017-12-27 08:15] LABS: Hematocrit 29.5 % (37-47); Hemoglobin 9.3 g/dl (12.0-15.0); Mean Corp Hgb Conc 31.5 g/gl (32-36); Mean Corpuscular Volume 95.2 fL (81-99); Mean Platelet Vol. 9.9 fl (6.2-12.0); Platelet Count 272 K/mm3 (150-450); RBC Distribution Width CV 16.3 % (11.6-14.6); RBC Distribution Width SD 56.3 fl (35.1-43.9); Scan Indicated on CBC? Y/N NO
[2017-12-27 08:40] LABS: ALB/GLOB Ratio 0.8 RATIO (0.9-2.4); AST(SGOT) 25 U/L (15-37); Alanine Aminotransfer ALT/SGPT 32 U/L (13-56); Albumin, Serum 2.6 g/dL (3.2-5.0); Alkaline Phosphatase 111 U/L (45-117); Anion Gap 8 (5-15); BUN 18 mg/dL (7-18); BUN/Creat Ratio 27.7 RATIO (10-20); Calcium,Total 9.7 mg/dL (8.5-10.1); Chloride 104 mmol/L (98-107); Creatinine, Serum 0.65 mg/dL (0.55-1.02); EST Glomerular Filtration Rate 95 mL/min (>60); Est Glom Filt Rate - Afr Amer 115 mL/min (>60); Globulin 3.2 g/dL (2.2-4.2); Glucose 114 mg/dL (74-106); Potassium 2.6 mmol/L (3.5-5.1); Protein, Total 5.8 g/dL (6.4-8.2); Sodium Level 140 mmol/L (136-145)
[2017-12-29 13:39] LABS: KEPPRA (LEVETIRACETAM) 99.5 ug/mL (10.0-40.0)
== END ==
LOC: OLS.ACW200 05:00
PROVIDERS: Visit Provider Family Medicine
DX: G40.909 Epilepsy, unspecified, not intractable, without status epilepticus (principal); I25.10 Atherosclerotic heart disease of native coronary artery without angina pectoris; R53.81 Other malaise; M62.81 Muscle weakness (generalized)
CPT/HCPCS: 36415; 80053; 80177; 85027

== ENCOUNTER → 2018-01-03 05:00 | Outpatient (REF) | payer MEDICARE, SELFPAY ==
[2018-01-03 08:41] LABS: Anion Gap 10 (5-15); BUN 26 mg/dL (7-18); Chloride 103 mmol/L (98-107); Creatinine, Serum 0.79 mg/dL (0.55-1.02); EST Glomerular Filtration Rate 76 mL/min (>60); Est Glom Filt Rate - Afr Amer 92 mL/min (>60); Glucose 171 mg/dL (74-106); Sodium Level 135 mmol/L (136-145)
== END ==
LOC: OLS.ACW200 05:00
PROVIDERS: Visit Provider Family Medicine
DX: J15.6 Pneumonia due to other Gram-negative bacteria (principal); I63.9 Cerebral infarction, unspecified; I69.354 Hemiplegia and hemiparesis following cerebral infarction affecting left non-dominant side; R13.10 Dysphagia, unspecified
CPT/HCPCS: 36415; 80048

== ENCOUNTER → 2018-01-05 05:00 | Outpatient (REF) | payer MEDICARE, SELFPAY ==
[2018-01-08 08:13] LABS: KEPPRA (LEVETIRACETAM) 34.7 ug/mL (10.0-40.0)
== END ==
LOC: OLS.ACW200 05:00
PROVIDERS: Visit Provider Family Medicine
DX: J15.6 Pneumonia due to other Gram-negative bacteria (principal); I63.9 Cerebral infarction, unspecified; I69.354 Hemiplegia and hemiparesis following cerebral infarction affecting left non-dominant side; R13.10 Dysphagia, unspecified
CPT/HCPCS: 36415; 80177

== ENCOUNTER → 2018-01-08 10:30 | Outpatient (REF) | payer MEDICARE, SELFPAY | LOC: OLS.ACW200 10:30 | PROVIDERS: Visit Provider Family Medicine | DX: R19.7 Diarrhea, unspecified (principal); J15.6 Pneumonia due to other Gram-negative bacteria; I63.9 Cerebral infarction, unspecified; I69.354 Hemiplegia and hemiparesis following cerebral infarction affecting left non-dominant side; R13.10 Dysphagia, unspecified | CPT/HCPCS: 87493 ==

== ENCOUNTER → 2018-01-20 05:00 | Outpatient (REF) | payer MEDICARE, SELFPAY ==
[2018-01-23 10:54] LABS: KEPPRA (LEVETIRACETAM) 31.3 ug/mL (10.0-40.0)
== END ==
LOC: OLS.ACW200 05:00
PROVIDERS: Visit Provider Family Medicine
DX: J15.6 Pneumonia due to other Gram-negative bacteria (principal); I63.9 Cerebral infarction, unspecified; I69.354 Hemiplegia and hemiparesis following cerebral infarction affecting left non-dominant side; R13.10 Dysphagia, unspecified
CPT/HCPCS: 36415; 80177

== ENCOUNTER → 2018-01-23 05:00 | Outpatient (REF) | payer MEDICARE, SELFPAY ==
[2018-01-23 08:20] LABS: Hematocrit 29.8 % (37-47); Hemoglobin 9.4 g/dl (12.0-15.0); Mean Corp Hgb Conc 31.5 g/gl (32-36); Mean Corpuscular Hgb 29.7 pg (27.0-32.0); Mean Platelet Vol. 10.2 fl (6.2-12.0); Platelet Count 332 K/mm3 (150-450); RBC Distribution Width CV 14.9 % (11.6-14.6); RBC Distribution Width SD 49.3 fl (35.1-43.9); Red Blood Count 3.17 M/mm3 (4.2-5.4); White Blood Count 7.7 K/mm3 (4.4-11.0)
[2018-01-23 08:25] LABS: Scan Indicated on CBC? Y/N NO
[2018-01-23 08:34] LABS: Anion Gap 11 (5-15); BUN 22 mg/dL (7-18); Calcium,Total 9.7 mg/dL (8.5-10.1); Chloride 105 mmol/L (98-107); Creatinine, Serum 0.79 mg/dL (0.55-1.02); EST Glomerular Filtration Rate 76 mL/min (>60); Est Glom Filt Rate - Afr Amer 92 mL/min (>60); Glucose 129 mg/dL (74-106); Potassium 4.3 mmol/L (3.5-5.1); Sodium Level 139 mmol/L (136-145)
== END ==
LOC: OLS.ACW200 05:00
PROVIDERS: Visit Provider Family Medicine
DX: J15.6 Pneumonia due to other Gram-negative bacteria (principal); I63.9 Cerebral infarction, unspecified; I69.354 Hemiplegia and hemiparesis following cerebral infarction affecting left non-dominant side; R13.10 Dysphagia, unspecified
CPT/HCPCS: 36415; 80048; 85027

== ENCOUNTER → 2018-02-08 13:15 | Outpatient (CLI) | payer MEDICARE, SELFPAY ==
--- NOTE | 2018-02-08 13:30 | SP.MBSS_ITS ---
PRIMARY / SECONDARY DIAGNOSIS: severe dysphagia (R13.12) REFERRING PHYSICIAN: Dr. Saeid Murdock MD CURRENT DIET: NPO with PEG DENTITION: missing teeth, WFL MENTAL STATUS: improved, sufficient for participation RESPIRATORY STATUS: O2 via room air PREVIOUS MODIFIED BARIUM SWALLOW STUDY: yes Completion at [facility] November 2018: results unavailable at time of assessment, though family detailing profound aspiration with minimal cough response, suspect silent aspiration based on family report. REASON FOR REFERRAL: Patient is a 72 year old female currently residing at [facility] referred for a modified barium swallow (MBS) study to objectively assess the Patients oropharyngeal swallow function under fluoroscopy secondary to the diagnosis of severe dysphagia requiring percutaneous endoscopy (PEG) tube placement following recent acute ischemic infarct with multiple prior ischemic infarcts involving the left frontal lobe, right centrum semiovale, right temporal and posterior left temporal lobe, and left occipital lobe. Patient well known to this clinician from previous [facility] / acute care admissions, Patient accompanied by her daughter and significant other. Patient recently admitted to [facility] on 12/21/2017 following discharge from [facility] on 2017 due to confusion and shortness of breath, workup revealed gram-negative aspiration pneumonia. Patient admitted to [facility] in December of 2017 for upwards of 2 week associated with seizures; course complicated by exacerbation of dysphagia with a nasogastric (NG) tube initially placed, PEG later placed on 12/15/2017, with no PO intake since aside from limited trials with a licensed speech-language pathologist. 12/21/2017 CXR revealed right lower lobe pneumonia; small right pleural effusion. 12/22/2017 CXR revealed stable right basilar alveolar disease and right pleural effusion. 12/21/2017 stable left occipital and right temporal encephalomalacia; no CT evidence of acute infarct or hemorrhage. 12/08/2016 MRI revealed involutional changes of the brain with extra axial calcified left frontal lesion measuring 1cm, may represent a meningioma, recent ischemic lesion in the inferior aspect of the left occipital lobe and posterior aspect of the left temporal lobe in the territory of the left posterior cerebral artery, small recent ischemic lesion in the centrum semioval on the right side, old ischemic lesions are seen in the right middle cerebral artery and left posterior cerebral artery territories. 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 STUDY FINDINGS: Patient participated in a Modified Barium Swallow (MBS) study on 02/08/2018. Dr. Norton was the radiologist present for this evaluation. This study was recorded in the lateral view and images were sent to PACs for storage. The following consistencies were presented to this patient for analysis of oropharyngeal swallow function: thin liquids, pudding, and a regular textured, Alexsandra Doone cookie. Results of the MBS are as follows: PENETRATION / ASPIRATION SCALE (ORTIZ): 1 = does not enter airway 2 = enters airway/above vocal folds/ejected 3 = enters airway/above vocal folds/not ejected 4 = enters airway/contacts vocal folds/ejected 5 = enters airway/contacts vocal folds/not ejected 6 = enters airway/below vocal folds/ejected 7 = enters airway/below vocal folds/not ejected despite effort 8 = enters airway/below vocal folds/no effort PENETRATION / ASPIRATION SCALE (SCORE): Thin liquid - 5 mL tsp.: 1 Thin liquids via straw (single sip): 2 Thin liquids via straw (single sip): 1 Thin liquids via straw (single sip): 1 Thin liquids via straw (single sip): 1 Thin liquids via straw (single sip): 1 Thin liquids via straw (single sip): 1 Pudding via spoon: 1 Regular textured cookie: 1 Thin liquids via straw (single sip): 1 Thin liquids via straw (chin tuck suboptimal execution): 1 IMPRESSION: DIAGNOSIS: mild to moderate oropharyngeal dysphagia (R13.12) with noted esophageal retention ORAL PHASE CHARACTERIZED BY: LABIAL SEAL: no labial escape TONGUE CONTROL DURING BOLUS MANIPULATION: intermittent posterior escape of less than half of bolus BOLUS PREPARATION / MASTICATION: slow prolonged chewing/mashing with complete recollection BOLUS TRANSPORT / LINGUAL MOTION: slowed tongue motion ORAL RESIDUE: trace residue lining oral structures PHARYNGEAL PHASE CHARACTERIZED BY: INITIATION OF PHARYNGEAL SWALLOW: bolus head in pyriforms at first hyoid excursion SOFT PALATE ELEVATION: no bolus between soft palate and pharyngeal wall LARYNGEAL ELEVATION: partial superior movement of thyroid cartilage/partial approximation of arytenoids cartilage to epiglottic petiole ANTERIOR HYOID EXCURSION: partial anterior movement EPIGLOTTIC MOVEMENT: complete epiglottic inversion LARYNGEAL VESTIBULE CLOSURE AT HEIGHT OF SWALLOW: complete laryngeal vestibule closure with no air/contrast in laryngeal vestibule PHARYNGEAL STRIPPING WAVE: pharyngeal stripping wave present / complete PHARYNGOESOPHAGEAL SEGMENT OPENING: complete distension and complete duration with no obstruction of flow TONGUE BASE RETRACTION: trace column of contrast between tongue base and posterior pharyngeal wall PHARYNGEAL RESIDUE: intermittent collection of residue within or on pharyngeal structures; majority of trials presenting with trace residue within or on pharyngeal structures ESOPHAGEAL PHASE CHARACTERIZED BY: ESOPHAGEAL BOLUS CLEARANCE IN THE UPRIGHT POSITION: copious esophageal retention past expected time frame for clearance (10-15 seconds) with mild retrograde flow below pharyngoesophageal segment (PES); slow rate of clearance. EFFECTS OF TREATMENT STRATEGIES ATTEMPTED: Chin tuck posture = poor execution, anticipated effectiveness Reduced bolus size = effective Use of straw = effective DIET TEXTURE RECOMMENDATIONS: Will recommend a pureed textured, thin liquid diet with supplementation via alternative means of nutrition as directed by a licensed imaging specialist (suggested advancement outlined below) COMPENSATORY STRATEGIES RECOMMENDED: Supervision with TOTAL FEED, chin tuck with thin liquids, check for buccal pocketing, reduced bolus volume, straws with all liquids (do not feed from cup during total feed), seated upright at 90 degrees during PO intake, remain upright for 30-60 minutes post meal (GERD precaution) INTERPRETATION OF RESULTS: Patient presents with mild to moderate oropharyngeal dysphagia (R13.12) with noted esophageal retention secondary to multiple ischemic infarcts involving the left frontal lobe, right centrum semiovale, right temporal and posterior left temporal lobe, and left occipital lobe; swallow function and cognitive presentation MARKEDLY improved from previous assessments. Oral preparatory phase marked by inability to maintain upright seated positing (strong right sided lean); inability to independently feed, requiring total feed with thin liquids via straw. Oral phase primarily marked by mastication inefficiency (mild ) with prolonged albeit effective bolus breakdown; suboptimal lingual control ( mild to moderate) with noted slowed rate of movement lingual festinations / lingual rolling pattern resulting in intermittent posterior bolus loss with thin liquids contributing to pre-prandial penetration; further clinical suspicion for buccal pocketing of bolus during prolonged PO intake of solid textures despite no current findings. Pharyngeal phase primarily marked by impaired pharyngeal swallow onset timing resulting in suboptimal bolus location upon swallow onset; and reduced closure of the airway during deglutition (mild) attributed to reduced anterior hyoid excursion and intermittent reduction in laryngeal elevation, with sufficient laryngeal vestibule pressure generated to expel penetrated material. Esophageal phase marked by copious esophageal retention past expected time frame for clearance (10-15 seconds) with mild retrograde flow below pharyngoesophageal segment (PES); slow rate of clearance. All oropharyngeal phase deficits ameliorated with bolus volume adjustments; would further consider implementation of chin tuck posture (suboptimal execution under fluoroscopy, though would anticipate benefit based on findings detailed above). No aspiration appreciated throughout trials, unable to definitively rule out silent aspiration. RECOMMENDATIONS: Patient at higher risk of dysphagia exacerbation with concurrent medical complications or iatrogenic factors effecting cognition, higher risk for SILENT aspiration with changes in cognition, would avoid sedative medication, encourage prophylactic diet texture alterations if alterations in cognition are appreciated. Patient is at higher risk of pulmonary complications associated with aspiration with due to the Patients comprised ambulatory abilities, inability to maintain upright seated positioning without assistance, dependency for oral care, and assistance required during PO intake; STRONGLY recommend continued skilled physical and occupational therapy targeting ambulatory abilities and independent functioning, STRONGLY recommend frequent and thorough oral care (following every meal, thorough dental cleaning by a licensed dental hygienist), as this will greatly reduce the Patients risk of aspiration and concomitant medical complications. Patient considered at higher risk for fatigue during PO intake associated with prolonged NPO status despite significant improvements across all phases of care, would consider limitations on meal duration, further recommend a tiered approach to PO intake return ( initial placement on pureed textures; advancement following 2-3 days with consumption >50-75% and no fatigue concerns; advancement from mechanical soft to soft textures following 1-2 weeks of adequate intake quantity and no fatigue concerns). Would consider this Patient to be at higher risk for malnutrition ( due to the recommended diet texture restrictions and concerns for fatigue), would recommend continued supplementation via alternative means as appropriate. Would further recommend continuation of medication administration via PEG until PO diet tolerance is appreciated, with initial concern for delayed esophageal clearance possibly leading to dysmotility or premature breakdown within the esophagus, and possible structural esophageal damage; would advance to PO medication administration if esophageal dysmotility symptoms resolve ( substernal pressure, globus sensation below the laryngeal notch atypical from previous baseline), though may resolve with continued intake (prolonged NPO status possibly contributing to poor peristaltic contractions / dysmotility). Would strongly caution removal of alternative means of nutrition, as the Patient has varied greatly in regards to her medical condition, with alterations in swallowing heavily anticipated with any significant alteration in medical standing. Patient requires continued intensive skilled speech- language intervention targeting continued diet texture management and advancement as indicated; training and implementation of recommended compensatory strategies; training and implementation of recommended oropharyngeal strengthening exercises to facilitate improved oropharyngeal strength and coordination; and Patient / caregiver training targeting meal preparation if unable to advance to baseline diet textures prior to discharge. Would further consider additional assessment of the Patients esophageal functioning, as it is outside the scope of the modified barium swallow study to objectively assess esophageal functioning, may additionally consider further workup via strategic planning director if concerns for dysmotility persist. ADDITIONAL COMMENTS/RECOMMENDATIONS: Results and recommendations were discussed with the Patient and Patients family immediately following MBS completion, with all verbalizing understanding and agreement with all recommendations and education provided. IMAGE COUNT: [id number] G-CODES: SWALLOWING G8996 Current Status: CK SWALLOWING G8997 Goal Status: CI SWALLOWING G8998 Discharge Status: CK
--- NOTE | 2018-02-08 13:35 | RAD_ITS ---
STUDY: SWALLOWING STUDY REASON FOR EXAM: Female, 72 years old. Dysphagia. TECHNIQUE: The examination was performed with Speech Pathology in attendance. Under fluoroscopic observation, the patient ingested thin barium, thick barium, barium pudding, and barium coated cracker. FLUOROSCOPY TIME: 3:00 minutes/seconds. 2225 spot images were obtained. RADIOLOGIST INVOLVEMENT: Radiologist was present and providing direct supervision. COMPARISON: None. FINDINGS: The following was observed during swallowing of the various mixtures of barium: Thin Barium: There was no evidence of aspiration or laryngeal penetration. Barium Pudding: There was no evidence of aspiration or laryngeal penetration. Barium Coated Cracker: There was no evidence of aspiration or laryngeal penetration. RAD/Swallowing Function w/Video IMPRESSION: Normal tailored barium swallow study. No evidence of increased risk for aspiration. The swallow study findings were discussed with the patient by the speech pathologist at the conclusion of the examination. Please see speech pathology report for more information and recommendations. Electronically Signed: Mitchell Norton MD at 8:57 EDT Tel [phone], Service support ,
== END ==
PROVIDERS: Family Provider Family Medicine; PCP Family Medicine; Visit Provider Family Medicine
DX: R13.10 Dysphagia, unspecified (principal)
CPT/HCPCS: 74230; 92611